=== PATIENT | female | born 1970 | race Two or more races ===

== ENCOUNTER 2019-07-28 13:31 | Emergency (ER) | payer OTHER ==
[2019-07-28 13:43] VITALS: BMI 21.3
[2019-07-28] MEDS ORDERED: SODIUM CHLORIDE 1,796 ML IV ONE (13:51)
[2019-07-28 14:31] LABS: BASO % 0.3 % (0-2.0); EOS % 0.8 % (0-4.5); HEMATOCRIT 30.7 % (32.4-45.2); HEMOGLOBIN 9.1 GM/dL (10.7-15.3); LYMPH % 10.1 % (8-40); MCHC 29.7 g/dl (32.0-36.0); MEAN CELL VOLUME 59.5 fl (80-96); MEAN PLT VOLUME 8.3 fl (7.5-11.1); MONO % 10.7 % (3.8-10.2); NEUT % 78.1 % (42.8-82.8); PLATELET COUNT 515 K/MM3 (134-434); RBC 5.16 M/mm3 (3.60-5.2); RDW 23.5 % (11.6-15.6); WHITE BLOOD COUNT 13.8 K/mm3 (4.0-10.0)
[2019-07-28 14:45] LABS: INR 1.39 (0.83-1.09); PROTHROMBIN TIME (PATIENT) 16.4 SEC (9.7-13.0)
[2019-07-28 14:48] LABS: ACTIVATED PTT 34.5 SECONDS (25.2-36.5)
[2019-07-28 14:58] LABS: MCH 17.7 pg (25.7-33.7)
[2019-07-28 15:06] LABS: ALBUMIN 2.5 g/dl (3.4-5.0); ALK PHOS 116 U/L (45-117); ANION GAP 7 MMOL/L (8-16); BILIRUBIN,TOTAL 0.3 mg/dL (0.2-1); CALCIUM 8.5 mg/dL (8.5-10.1); CHLORIDE 105 mmol/L (98-107); CO2 26 mmol/L (21-32); CREATININE 0.5 mg/dL (0.55-1.3); GLUCOSE,RANDOM 105 mg/dL (74-106); POTASSIUM 3.5 mmol/L (3.5-5.1); SGOT/AST 32 U/L (15-37); SGPT/ALT 45 U/L (13-61); SODIUM 138 mmol/L (136-145); TOT PROT 6.5 g/dl (6.4-8.2)
--- NOTE | 2019-07-28 15:17 | PDOC ---
History of Present Illness - General Chief Complaint: Edema Stated Complaint: SENT BY PCP/ABN LABS History Source: Patient Exam Limitations: No Limitations - History of Present Illness Initial Comments: 07/28/19 15:08 49 yo female pmh anxiety and chronic anemia (scheduled for iron infusion next week) presents to the ED from Urgent care for low K and elevated WBC after persistent watery diarrhea. Pt states since 07/10/2019 she has had persistent, foul smelling watery diarrhea, 5 episodes a day without gross blood. Pt admits to recent endometrial procedure 2 weeks ago and warned about likely abdominal pain that will follow, pt does admit to bilateral lower quadrant abdominal pain. Pt has been followed by GI for IBS vs IBD, treated with 14 day course of Rifaxamin and has scheduled colonoscopy 08/2019. Pt had CT with IV and PO contrast 04/2019, states the report was normal, no concerning findings. Denies F /C/N/V, new abdominal pain, CP, SOB, back pain, changes in urinary habits, recent travel or sick contacts Past History - Past Medical History Allergies/Adverse Reactions: Allergies Allergy/AdvReac Type Severity Reaction Status Date / Time No Known Allergies Allergy Verified 07/28/19 13:39 Home Medications: Ambulatory Orders Amox-Tr/K Cl [Augmentin - 875Mg Tablet] 1 tab PO BID #20 tablet 07/28/19 LORazepam [Lorazepam] 0.5 mg PO TID PRN 07/28/19 Metronidazole 500 mg PO Q6H #40 tablet 07/28/19 Bacillus Coagulans [Probiotic] 1 each PO DAILY #14 capsule. 07/29/19 Anemia: Yes COPD: No - Psycho Social/Smoking Cessation Hx Smoking History: Never smoked Have you smoked in the past 12 months: No Information on smoking cessation initiated: No Hx Alcohol Use: No Drug/Substance Use Hx: No Review of Systems - Review of Systems Constitutional: No: Fever (however, rectal temp 100.6) HEENTM: No: Blurred Vision, Double Vision Respiratory: No: Shortness of Breath Cardiac (ROS): No: Chest Pain, Edema ABD/GI: Yes: Diarrhea. No: Abdominal Distended, Constipated, Nausea, Vomiting : No: Burning, Dysuria, Frequency, Flank Pain Musculoskeletal: No: Back Pain Integumentary: No: Bruising, Change in Color Neurological: No: Headache, Numbness, Paresthesia, Weakness *Physical Exam - Vital Signs Last Vital Signs Temp Pulse Resp BP Pulse Ox 98.1 F 125 H 18 127/80 98 07/28/19 13:40 07/28/19 13:40 07/28/19 13:40 07/28/19 13:40 07/28/19 13:40 - Physical Exam General Appearance: Yes: Nourished, Appropriately Dressed. No: Apparent Distress HEENT: positive: EOMI Neck: positive: Supple. negative: Carotid bruit Respiratory/Chest: positive: Lungs Clear, Normal Breath Sounds. negative: Respiratory Distress, Accessory Muscle Use, Rapid RR, Crackles, Rales, Rhonchi, Stridor, Wheezing Vascular Pulses: Dorsalis-Pedis (R): 4+, Doralis-Pedis (L): 4+ Gastrointestinal/Abdominal: positive: Flat, Soft, Tenderness (bilateral lower quadrant). negative: Pulsatile Mass, Distended, Guarding, Rebound Musculoskeletal: negative: CVA Tenderness Extremity: positive: Normal Inspection, Normal Range of Motion Integumentary: positive: Normal Color, Dry, Warm Neurologic: positive: Fully Oriented, Alert, Normal Mood/Affect, Normal Response ED Treatment Course - LABORATORY CBC & Chemistry Diagram: 07/28/19 14:00 07/28/19 14:00 - ADDITIONAL ORDERS Additional order review: Laboratory Results 07/28/19 07/28/19 07/28/19 14:00 14:00 14:00 PT with INR 16.40 H INR 1.39 H PTT (Actin FS) 34.5 Sodium 138 Potassium 3.5 Chloride 105 Carbon Dioxide 26 Anion Gap 7 L BUN 9.0 Creatinine 0.5 L Est GFR (CKD-EPI)AfAm 133.58 Est GFR (CKD-EPI)NonAf 115.25 Random Glucose 105 Calcium 8.5 Magnesium 2.0 Total Bilirubin 0.3 AST 32 ALT 45 Alkaline Phosphatase 116 Troponin I < 0.02 Total Protein 6.5 Albumin 2.5 L Serum , Qual Negative 07/28/19 14:00 RBC 5.16 MCV 59.5 L MCHC 29.7 L RDW 23.5 H MPV 8.3 Neutrophils % 78.1 Lymphocytes % 10.1 Monocytes % 10.7 H Eosinophils % 0.8 Basophils % 0.3 Medical Decision Making - Medical Decision Making 07/28/19 16:42 49 yo female pmh anxiety and chronic anemia (scheduled for iron infusion next week) presents to the ED from Urgent care for low K and elevated WBC after persistent watery diarrhea. Pt states since 07/10/2019 she has had persistent, foul smelling watery diarrhea, 5 episodes a day without gross blood. Pt admits to recent endometrial procedure 2 weeks ago and warned about likely abdominal pain that will follow, pt does admit to bilateral lower quadrant abdominal pain. Pt has been followed by GI for IBS vs IBD, treated with 14 day course of Rifaxamin and has scheduled colonoscopy 08/2019. Pt had CT with IV and PO contrast 04/2019, states the report was normal, no concerning findings. Denies F /C/N/V, new abdominal pain, CP, SOB, back pain, changes in urinary habits, recent travel or sick contacts vitals show elevated HR on arrival 125, after 1L during my exam, 115. Temp rectal 100.6, tylenol given Labs from Urgent Care show WBC of 18.7, HG of 9.5, K 2.9 In the ED labs show WBC 13, K of 3.5 Due to symptoms and labs, likely C diff however due to recent uterine procedure , can not r/o post op infection. CT ordered and emperic antibiotics ordered 07/28/19 21:04 CTAP shows moderate to marked thickening transvers- rectosig colon, infectious vs inflammatory pt to be admitted to Med surg for likely C diff Discharge - Discharge Information Problems reviewed: Yes Clinical Impression/Diagnosis: C. difficile colitis Condition: Stable Disposition: AGAINST MEDICAL ADVICE - Admission Yes - Additional Discharge Information Prescriptions: Amox-Tr/K Cl [Augmentin - 875Mg Tablet] 1 tab PO BID #20 tablet Metronidazole 500 mg PO Q6H #40 tablet - Follow up/Referral Referrals: Seferino Resendiz [Primary Care Provider] - - Patient Discharge Instructions Patient Printed Discharge Instructions: DI for Clostridium difficile Infection Additional Instructions: You were seen in the ED and it is medically advised for you to stay in the hospital to treat your infection however, you decided to leave against medical advice with the knowledge that your infection may worsen and possibly lead to . Medication was sent to your pharmacy for the infection, take the antibiotics as prescribed. You are welcome back to the hospital at any time for treatment and likely admission to the hospital. You should return to the closest ER immediately for new or concerning symptoms including but not limited to: inability to eat or drink, fevers, abdominal pain , weakness all your imaging and lab results were given to you. Thank you - Post Discharge Activity Work/Back to School Note: Back to Work
[2019-07-28] MEDS ORDERED: LACTATED RINGERS SOLUTION 1000 ML INFUS.BAG IV SCH (15:30)
[2019-07-28 15:47] LABS: VENOUS PC02 39.5 mmHg (38-52); VENOUS PO2 < 49 mmHg (28-48)
[2019-07-28] MEDS ORDERED: ACETAMINOPHEN 1000 MG/100 ML VIAL (NON FORMULARY) IVPB ONE (16:22)
[2019-07-28] MEDS ORDERED: ACETAMINOPHEN INJECTION 100 ML IVPB ONE (16:27)
[2019-07-28 17:54] LABS: ANISOCYTOSIS 2+; MACROCYTOSIS 1+; OVALOCYTE 1+; PLATELET ESTIMATE INCREASED; TEAR DROP CELLS 1+
[2019-07-28] MEDS ORDERED: VANCOMYCIN 1 GM in D5W (PRE-DOCKED) 1,000 MG/250 ML IVPB ONE (19:50)
[2019-07-28] MEDS ORDERED: PIPERACILLIN/TAZOB 4.5 GM 4.5 GM in DEXTROSE 5%-WATER 100 ML IVPB ONE (19:50)
--- NOTE | 2019-07-28 20:04 | PDOC ---
*Physical Exam - Vital Signs Last Vital Signs Temp Pulse Resp BP Pulse Ox 100.6 F H 102 H 16 124/71 98 07/28/19 15:54 07/28/19 16:44 07/28/19 16:44 07/28/19 16:44 07/28/19 16:44 ED Treatment Course - LABORATORY CBC & Chemistry Diagram: 07/28/19 14:00 07/28/19 14:00 - ADDITIONAL ORDERS Additional order review: Laboratory Results 07/28/19 07/28/19 07/28/19 18:15 15:05 14:00 PT with INR INR PTT (Actin FS) VBG pH 7.40 POC VBG pCO2 39.5 POC VBG pO2 < 49 H VBG HCO3 24.0 VBG O2 Sat (Lorelei) 23.8 L VBG Base Excess -0.1 Sodium Potassium Chloride Carbon Dioxide Anion Gap BUN Creatinine Est GFR (CKD-EPI)AfAm Est GFR (CKD-EPI)NonAf Random Glucose Lactic Acid 2.7 H* Calcium Magnesium Total Bilirubin AST ALT Alkaline Phosphatase Troponin I Total Protein Albumin Serum , Qual Negative Blood Type Antibody Screen 07/28/19 07/28/19 07/28/19 14:00 14:00 14:00 PT with INR INR PTT (Actin FS) VBG pH POC VBG pCO2 POC VBG pO2 VBG HCO3 VBG O2 Sat (Lorelei) VBG Base Excess Sodium 138 Potassium 3.5 Chloride 105 Carbon Dioxide 26 Anion Gap 7 L BUN 9.0 Creatinine 0.5 L Est GFR (CKD-EPI)AfAm 133.58 Est GFR (CKD-EPI)NonAf 115.25 Random Glucose 105 Lactic Acid 1.2 Calcium 8.5 Magnesium 2.0 Total Bilirubin 0.3 AST 32 ALT 45 Alkaline Phosphatase 116 Troponin I < 0.02 Total Protein 6.5 Albumin 2.5 L Serum , Qual Blood Type O POSITIVE Antibody Screen Negative 07/28/19 14:00 PT with INR 16.40 H INR 1.39 H PTT (Actin FS) 34.5 VBG pH POC VBG pCO2 POC VBG pO2 VBG HCO3 VBG O2 Sat (Lorelei) VBG Base Excess Sodium Potassium Chloride Carbon Dioxide Anion Gap BUN Creatinine Est GFR (CKD-EPI)AfAm Est GFR (CKD-EPI)NonAf Random Glucose Lactic Acid Calcium Magnesium Total Bilirubin AST ALT Alkaline Phosphatase Troponin I Total Protein Albumin Serum , Qual Blood Type Antibody Screen 07/28/19 14:00 RBC 5.16 MCV 59.5 L MCHC 29.7 L RDW 23.5 H MPV 8.3 Neutrophils % 78.1 Lymphocytes % 10.1 Monocytes % 10.7 H Eosinophils % 0.8 Basophils % 0.3 - RADIOLOGY Radiology Studies Ordered: Category Date Time Status ABDOMEN & PELVIS CT W/O CONTR [CT] Stat CT Scan 07/28/19 19:43 Taken - Medications Given in the ED: ED Medications Discontinued Medications Generic Name Dose Route Start Last Admin Trade Name Micha PRN Reason Stop Dose Admin Acetaminophen 1,000 mg 07/28/19 16:22 07/28/19 16:41 Ofirmev Injection - IVPB 07/28/19 16:23 1,000 mg ONCE ONE Administration Sodium Chloride 1,796 mls @ 898 mls/hr 07/28/19 13:51 07/28/19 14:06 Normal Saline - 30 ml/kg infuse over 2 hr (1796 ml) 07/28/19 15:50 898 mls/ hr IV Administration ONCE ONE Medical Decision Making - Medical Decision Making 07/28/19 20:00 I picked up patient from the day shift. She is awaiting CT abd/pelvis. She states that she has contrast allergy and as a result she will have a noncon study 07/28/19 20:14 Pt has no fever and no abd pain at this time. She is upset because she has a job interview tomorrow at [employer] [facility] [place] that she doesn't want to miss 07/28/19 20:15 Pt still tachycardic. 07/28/19 20:48 Patient Name: CLEO TOMAS THIS IS A PRELIMINARY REPORT FROM [facility] DATE OF SERVICE: 2019-07-28 19:41:38 IMAGES: [id number] EXAM: CT ABDOMEN AND PELVIS WITHOUT IV CONTRAST HISTORY: Please evaluate for ileus or obstruction. FINDINGS: Lower Chest: Within normal limits. Abdomen: Liver:: Within normal limits. Bile Ducts: Within normal limits. Gallbladder:: Within normal limits. Pancreas:: Within normal limits. Spleen:: Within normal limits. Adrenals: Within normal limits. Kidneys: There are a couple of tiny nonobstructing nephrolithiasis in the left kidney measuring up to 1-2 mm without evidence of hydronephrosis. Stomach:: Within normal limits. Bowel:: Moderate to marked thickening of the transverse, descending, and rectosigmoid colon compatible with inflammatory/infectious colitis including ulcerative colitis/ Crohn's disease. The possibility of C. difficile colitis cannot be excluded. No evidence of small bowel obstruction. Normal appendix is identifie. Small amount of fluid in the pelvic floor. Pelvis: Reproductive Organs: Enlarged fibroid uterus. Bladde: Within normal limits. Vessels: Aorta: Within the normal limits without aneurysm. . Retroperitoneum: Within normal limits. Bones: : No suspicious osseous lesions. IMPRESSION: 1. Moderate to marked thickening of the transverse, descending, and rectosigmoid colon compatible with inflammatory/infectious colitis including ulcerative colitis/ Crohn's disease. The possibility of C. difficile colitis cannot be excluded. No evidence of small bowel obstruction. Normal appendix is identifie. Small amount of fluid in the pelvic floor. Discharge - Discharge Information Problems reviewed: Yes Clinical Impression/Diagnosis: C. difficile colitis Condition: Stable Disposition: AGAINST MEDICAL ADVICE - Additional Discharge Information Prescriptions: Bacillus Coagulans [Probiotic] 1 each PO DAILY #14 capsule.dr - Follow up/Referral Referrals: Seferino Resendiz [Primary Care Provider] - - Patient Discharge Instructions Patient Printed Discharge Instructions: DI for Clostridium difficile Infection Additional Instructions: You were seen in the ED and it is medically advised for you to stay in the hospital to treat your infection however, you decided to leave against medical advice with the knowledge that your infection may worsen and possibly lead to . Medication was sent to your pharmacy for the infection, take the antibiotics as prescribed. You are welcome back to the hospital at any time for treatment and likely admission to the hospital. You should return to the closest ER immediately for new or concerning symptoms including but not limited to: inability to eat or drink, fevers, abdominal pain , weakness all your imaging and lab results were given to you. Thank you - Post Discharge Activity Work/Back to School Note: Back to Work
[2019-07-28] MEDS ORDERED: FOLIC ACID INJECTION - 1 MG, THIAMINE HCL 100 MG, MULTIVIT INJECTION ADULT 10 ML in SOD... IVPB ONE (20:16)
[2019-07-28] MEDS ORDERED: AMPICILLIN NA/SULBACTAM NA 3 GM in SODIUM CHLORIDE 100 ML IVPB ONE (20:18)
[2019-07-28] MEDS ORDERED: AMPICILLIN NA/SULBACTAM NA 1.5 GM VIAL ONE (20:33)
--- NOTE | 2019-07-28 21:25 | PN ---
Teaching Attending Note Name of Resident: Evan Llamas ATTENDING PHYSICIAN STATEMENT I saw and evaluated the patient. I reviewed the resident's note and discussed the case with the resident. I agree with the resident's findings and plan as documented. SUBJECTIVE: Patient is a 49 year old woman with a PMH of Anxiety and Anemia (scheduled for iron infusion next week) who presents to the ED from Urgent care for low K and elevated WBC after persistent watery diarrhea. Patient states that since 2019 she has had persistent, foul smelling watery diarrhea, 5 episodes a day without gross blood. Had endometrial procedure 2 weeks ago and warned about likely abdominal pain that will follow. Does admit to bilateral lower quadrant abdominal pain. Has been followed by GI for IBS vs IBD, treated with 14 day course of Rifaxamin and has scheduled colonoscopy 08/2019. Had CT with IV and PO contrast in 04/2019 and says the report was normal. Denies fever, chills, nausea, vomiting, chest pain, SOB, back pain, changes in urinary habits, recent travel or sick contacts. Denies alcohol, tobacco or illicit drug use. OBJECTIVE: Alert Vital Signs Period Temp Pulse Resp BP Sys/Henning Pulse Ox Last 24 Hr 98.1 F-100.6 F 102-125 16-18 124-127/71-80 98-98 HEENT: No Jaundice, eye redness or discharge, PERRLA, EOMI. Normocephalic, atraumatic. External ears are normal and hearing is grossly intact. No nasal discharge. Neck: Supple, nontender. No palpable adenopathy or thyromegaly. No JVD Chest: Good effort. Clear to auscultation and percussion. Heart: Regular. No S3, rub or murmur Abdomen: Not distended, soft, nontender and no HSM. No rebound or guarding. Normal bowel sounds. Ext: Peripheral pulses intact. No leg edema. Skin: Warm and dry. No petechiae, rash or ecchymosis. Neuro: Alert. Oriented x3. CN 2-12 grossly intact. Sensation grossly intact in all four extremities and DTR are symmetric. Psych: Appropriate mood and affect. Good insight. Current Medications Generic Name Dose Route Start Last Admin Trade Name Freq PRN Reason Stop Dose Admin Folic Acid 1 mg/ Thiamine HCl 1,000 mls @ 125 mls/hr 07/28/19 20:16 100 mg/ Multivitamins/Minerals IVPB 07/29/19 04:15 10 ml/ Sodium Chloride ONCE ONE Lactated Ringer's 1,000 ml 07/28/19 15:30 07/28/19 15:52 Lactated Ringers Solution IV 1,000 ml [id number] FRANCIS Administration Vancomycin HCl 250 mg 07/29/19 21:14 Vancomycin Oral Solution PO 07/29/19 21:15 NOW ONE Home Medications Medication Instructions Recorded LORazepam [Lorazepam] 0.5 mg PO TID PRN 07/28/19 Abnormal Lab Results 07/28/19 07/28/19 07/28/19 14:00 14:00 14:00 WBC 13.8 H Hgb 9.1 L Hct 30.7 L MCV 59.5 L MCH 17.7 L MCHC 29.7 L RDW 23.5 H Plt Count 515 H Absolute Neuts (auto) 10.8 H Monocytes % 10.7 H PT with INR 16.40 H INR 1.39 H POC VBG pO2 VBG O2 Sat (Lorelei) Anion Gap 7 L Creatinine 0.5 L Lactic Acid Albumin 2.5 L 07/28/19 07/28/19 15:05 18:15 WBC Hgb Hct MCV MCH MCHC RDW Plt Count Absolute Neuts (auto) Monocytes % PT with INR INR POC VBG pO2 < 49 H VBG O2 Sat (Lorelei) 23.8 L Anion Gap Creatinine Lactic Acid 2.7 H* Albumin ASSESSMENT AND PLAN: 1. C. Difficile Colitis - CT abdomen/pelvis without contrast showed "Moderate to marked thickening of the transverse, descending, and rectosigmoid colon compatible with inflammatory/ infectious colitis including ulcerative colitis/Crohn's disease. The possibility of C. difficile colitis cannot be excluded. No evidence of small bowel obstruction. Normal appendix is identified. Small amount of fluid in the pelvic floor". Sepsis workup being done. UA/CXR pending. Started on PO vancomycin for C. Difficile colitis pending stool analysis. Continue IV NS and trend lactic acid. Will continue comprehensive care for all of patients comorbid conditions. 2. Hypoalbuminemia - Possibly due to combined effects of malnutrition and inflammation associated with comorbid chronic conditions. Will ensure adequate dietary protein intake and also consult dietetics teacher. UA pending. 3. Low MCV Anemia - Consistent with blood loss/iron deficiency. Do basic anemia work up including serial stool guaiacs, reticulocyte count and iron studies. Would benefit from Procrit therapy once iron replete. 4. DVT prophylaxis - Lovenox 40 mg SQ q 24 hours. 5. Advance directives - Full code
[2019-07-28 23:11] VITALS: TEMP 98
[2019-07-29 01:14] VITALS: BP 126/73; PULSE 94
--- NOTE | 2019-07-29 10:02 | EKG ---
Test Reason : Blood Pressure : / mmHG Vent. Rate : 123 BPM Atrial Rate : 123 BPM P-R Int : 128 ms QRS Dur : 078 ms QT Int : 316 ms P-R-T Axes : 071 058 045 degrees QTc Int : 452 ms SINUS TACHYCARDIA POSSIBLE LEFT ATRIAL ENLARGEMENT NONSPECIFIC ST ABNORMALITY ABNORMAL ECG NO PREVIOUS ECGS AVAILABLE Confirmed by RONALDO POLO, SANDY ([id number]) on 07/29/2019 10:01:55 AM Referred By: Confirmed By:SANDY HIGGINS MD
[2019-07-29] MEDS ORDERED: VANCOMYCIN 250 MG/5 ML ORAL SOLUTION PO ONE (21:14)
--- NOTE | 2019-08-01 13:47 | PDOC ---
Documentation entered by Yury Wolfe SCRIBE, acting as scribe for Allyssa Nance MD. Allyssa Nance MD: This documentation has been prepared by the Aiden wheat Daniel, SCRIBE, under my direction and personally reviewed by me in its entirety. I confirm that the documentation accurately reflects all work, treatment, procedures, and medical decision making performed by me. Attending Attestation - Resident Resident Name: Kayden Morales - ED Attending Attestation I have performed the following: I have examined & evaluated the patient, The case was reviewed & discussed with the resident, I agree w/resident's findings & plan, Exceptions are as noted - HPI HPI: 07/28/19 16:50 The patient is a 49 year old female with a past medical history of anxiety and chronic anemia here today for evaluation of diarrhea and abnormal lab values. The patient reports that she has had watery foul smelling diarrhea everyday since 07/10/2019 and notes about 5 episodes per day. She states that she has had imaging and follows with a GI. Patient initially presented to an urgent care but was told to come here due to a low K and an elevated WBC. She also notes bilateral lower quadrant abdominal pain. She reports ablation for endometriosis 2 weeks ago and has had the lower abdominal pain since. Patient denies headache, lightheadedness. Denies fever, chills. Denies chest pain, shortness of breath. Denies nausea, vomiting. Allergies: NKA - Physicial Exam PE: 07/28/19 16:50 GENERAL: Awake, alert, and fully oriented, in no acute distress EYES: PERRLA, EOMI, sclera anicteric, conjunctiva clear ENT: Oropharynx clear without exudates. Dry MM NECK: Normal ROM, supple, no lymphadenopathy, JVD, or masses LUNGS: Breath sounds equal, clear to auscultation bilaterally. No wheezes, and no crackles HEART: Tachcardic but regular, normal S1 and S2, no murmurs, rubs or gallops ABDOMEN: Soft, mild RLQ and LLQ ttp, normoactive bowel sounds. No guarding, no rebound. No masses EXTREMITIES: Normal range of motion, no edema. No clubbing or cyanosis. No cords , erythema, or tenderness BACK: No midline spinal tenderness in cervical/thoracic/lumbar region NEUROLOGICAL: Normal speech, cranial nerves intact, equal strength and sensation b/l SKIN: Warm, Dry, normal turgor, no rashes or lesions noted. - Medical Decision Making 07/28/19 18:30 49yo F presents to the ED for diarrhea, lower abd pain, found to have hypokalemia at today and send to the ED for further evaluation. Here, potassium wnl, but pt has leukocytosis as well as lower abd pain She is also tachycardic with dry MM, likely dehydration 2/2 diarrhea HR is improved with 3L fluids (NSx2, LR x1) Recent abx 2mo ago, c.diff pending CTAP is pending to r/o acute intraabd pathology Initial lactic negative, however trended up after 3L IVF As such, will plan to admit pt for possible sepsis once CTAP is back Case signed out to Dr. Mon for further mgmt
== END 2019-07-29 00:05 | disposition left against medical advice (07) ==
LOC: JER 13:31 → SUPCPDRO 13:31 → JER 07-29 00:05
PROC: 3E0337Z Introduction of Electrolytic and Water Balance Substance into Peripheral Vein, Percutaneous Approach (ICD-10-PCS; principal; 2019-07-28)
PROC: 3E0337Z Introduction of Electrolytic and Water Balance Substance into Peripheral Vein, Percutaneous Approach (ICD-10-PCS; 2019-07-28)
PROC: 3E03329 Introduction of Other Anti-infective into Peripheral Vein, Percutaneous Approach (ICD-10-PCS; 2019-07-28)
PROC: 3E03329 Introduction of Other Anti-infective into Peripheral Vein, Percutaneous Approach (ICD-10-PCS; 2019-07-28)
PROC: 3E033GC Introduction of Other Therapeutic Substance into Peripheral Vein, Percutaneous Approach (ICD-10-PCS; 2019-07-28)
PROC: 3E033GC Introduction of Other Therapeutic Substance into Peripheral Vein, Percutaneous Approach (ICD-10-PCS; 2019-07-28)
PROC: 3E033NZ Introduction of Analgesics, Hypnotics, Sedatives into Peripheral Vein, Percutaneous Approach (ICD-10-PCS; 2019-07-28)
DX: A04.72 Enterocolitis due to Clostridium difficile, not specified as recurrent (principal); B96.89 Other specified bacterial agents as the cause of diseases classified elsewhere; D64.9 Anemia, unspecified; F41.9 Anxiety disorder, unspecified
CPT/HCPCS: 36415; 74176-TC; 80053; 82803; 83605; 83735; 84484; 84703; 85025; 85610; 85730; 86850; 86900; 86901; 87040; 87324; 87449; 93005; 93010; 99285-25; J0131; J7030

== ENCOUNTER 2019-08-02 09:04 | Inpatient (IN) | payer OTHER ==
--- NOTE | 2019-08-02 09:34 | PDOC ---
History of Present Illness - General Chief Complaint: Weakness Stated Complaint: CHEST PAIN/ DIZZINESS Time Seen by Provider: 08/02/19 09:30 History Source: Patient Exam Limitations: No Limitations - History of Present Illness Initial Comments: 08/02/19 09:33 HPI: 49 yo F PMH fibroids, anemia, presenting with chronic diarrhea for past year. Patient compiling of GI gassiness for 1 year, development of daily diarrhea, intermittently bloody, with preserved appetite. Was seen here for similar complaints - CT demonstrated a colitis, discharged on Flagyl / Amoxicillin. Patient reports the Flagyl gave her nausea and she self- discontinued after her Monday morning dose. She reports that the antibiotics did remove the foul smell from her diarrhea. C. Dif from 07/28 visit has resulted negative. She has a GI provider (Dr. Shea Leon) and is scheduled for a colonoscopy on 09/05 and a GI follow up appointment on 08/06. Tylenol helps with her general aches. She reports having an appetite, ate 1/2 a tuna sandwich , a gatorade, and her liquid iron supplement this morning. She says she is fearful because she has lost 10lbs over the last week in light of worsening appetite and feels her diarrhea is getting ahead of her. Of note, she reports baseline tachycardia, stating that her family all has fast heart rates. Denies any other cardiovascular problems in self or family. All: - Contrast (Jittery) - Metronidazole (nausea) Meds: Per chart PMH: fibroids, anemia PSH: Denies Past History - Past Medical History Allergies/Adverse Reactions: Allergies Allergy/AdvReac Type Severity Reaction Status Date / Time No Known Allergies Allergy Verified 08/02/19 10:22 Home Medications: Ambulatory Orders LORazepam [Lorazepam] 0.5 mg PO TID PRN 07/28/19 Bacillus Coagulans [Probiotic] 1 each PO DAILY #14 capsule. 07/29/19 Anemia: Yes COPD: No - Psycho Social/Smoking Cessation Hx Smoking History: Never smoked Have you smoked in the past 12 months: No Hx Alcohol Use: No Drug/Substance Use Hx: No Review of Systems - Review of Systems Able to Perform ROS?: Yes Is the patient limited Palestinian proficient: Yes Constitutional: Yes: Unintentional Wgt. Loss. No: Chills, Fever, Weakness HEENTM: No: Nose Pain, Nose Congestion, Throat Pain, Mouth Pain Respiratory: No: Cough, Shortness of Breath, Wheezing Cardiac (ROS): No: Chest Pain ABD/GI: Yes: Diarrhea, Nausea. No: Constipated, Poor Appetite, Poor Fluid Intake, Vomiting : No: Burning, Dysuria, Frequency Musculoskeletal: No: Muscle Pain, Muscle Weakness Integumentary: No: Bruising, Pallor, Rash Neurological: No: Headache, Numbness, Tingling, Weakness Psychiatric: Yes: Anxiety, Change in Appetite Endocrine: No: Increased Thirst, Increased Urine Hematologic/Lymphatic: Yes: Anemia. No: Blood Clots, Easy Bleeding All Other Systems: Reviewed and Negative *Physical Exam - Physical Exam 08/02/19 11:03 Vitals reviewed, afebrile, tachycardic to 120s-130s GEN: Well appearing, appears stated age, NAD, comfortable. AAOx3. HEENT: NCAT, EOMI, PERRL. Sclera anicteric, noninjected. No facial asymmetry. Moist mucous membranes. Normal voice. Trachea midline. CV: Tachy, NSR, S1/S2, no murmurs / rubs / gallops appreciated. LUNG: CTAB, normal work of breathing. No wheezes, rales, rhonchi. No cough. Speaking full sentences. GI: Soft, NTND, no guarding, no rebound. No masses. EXTREMITIES: 2+ distal pulses. No LE edema. No obvious deformities of all extremities. SKIN: Warm, dry, no rashes appreciated, non-jaundiced. PSYCH: Normal mood and affect. Cooperative and appropriate. NEURO: CN grossly intact. Moving all extremities well. Normal strength and sensation grossly. ED Treatment Course - LABORATORY CBC & Chemistry Diagram: 08/02/19 10:00 08/02/19 10:00 Medical Decision Making - Medical Decision Making 08/02/19 09:33 49 yo F PMH fibroids, anemia, anxiety, presenting with chronic diarrhea for past year. History notable for close GI follow up, worsened diarrhea for past month, recent presentation with partial antibiotic regimen due to noncompliance. Concerning for colitis, possibly UC vs infectious. Increasing leukocytosis, no fever, worsening appetite, patient noncompliant with PO medications. - CBC, CMP, T&S, Coags - EKG - 1L IVF NS 08/02/19 11:07 - 18.4 WBC - EKbpm, sinus, normal axis, normal intervals, QTc 449, no ischemic changes, possible ?LA enlargement, otherwise normal EKG 08/02/19 12:54 - Repeat lactic acid ordered, initial 3.3, s/p 2L IVF - ABX running Admit: Colitis, IV ABX Discharge - Discharge Information Problems reviewed: Yes Clinical Impression/Diagnosis: Colitis Condition: Guarded - Follow up/Referral - Patient Discharge Instructions - Post Discharge Activity
[2019-08-02] MEDS ORDERED: SODIUM CHLORIDE 0.9% 500 ML INFUS.BAG IV ONE ×3 (09:56→12:38)
[2019-08-02 10:28] LABS: BASO % 0.2 % (0-2.0); EOS % 1.3 % (0-4.5); HEMOGLOBIN 9.5 GM/dL (10.7-15.3); LYMPH % 8.4 % (8-40); MCHC 29.8 g/dl (32.0-36.0); MEAN CELL VOLUME 60.1 fl (80-96); MEAN PLT VOLUME 8.4 fl (7.5-11.1); MONO % 12.2 % (3.8-10.2); NEUT % 77.9 % (42.8-82.8); PLATELET COUNT 686 K/MM3 (134-434); RBC 5.32 M/mm3 (3.60-5.2); RDW 22.3 % (11.6-15.6); WHITE BLOOD COUNT 18.4 K/mm3 (4.0-10.0)
[2019-08-02 10:40] LABS: MCH 17.9 pg (25.7-33.7)
[2019-08-02 10:41] LABS: INR 1.54 (0.83-1.09); PROTHROMBIN TIME (PATIENT) 18.3 SEC (9.7-13.0)
[2019-08-02 10:44] LABS: ACTIVATED PTT 33.4 SECONDS (25.2-36.5)
[2019-08-02 11:01] LABS: ALBUMIN 2.1 g/dl (3.4-5.0); BILIRUBIN,TOTAL 0.1 mg/dL (0.2-1); BLOOD UREA NITROGEN 10.2 mg/dL (7-18); CREATININE 0.6 mg/dL (0.55-1.3); POTASSIUM 3.2 mmol/L (3.5-5.1); TOT PROT 5.6 g/dl (6.4-8.2)
--- NOTE | 2019-08-02 11:01 | PDOC ---
Documentation entered by Gina Lee SCRIBE, acting as scribe for Kelvin Boyer MD. Kelvin Boyer MD: This documentation has been prepared by the Jesus wheat Adrianna, SCRIBE, under my direction and personally reviewed by me in its entirety. I confirm that the documentation accurately reflects all work, treatment, procedures, and medical decision making performed by me. Attending Attestation - Resident Resident Name: CarlosCarlos - ED Attending Attestation I have performed the following: I have examined & evaluated the patient, The case was reviewed & discussed with the resident, I agree w/resident's findings & plan, Exceptions are as noted - HPI HPI: The patient is a 49 year old female, with a significant PMH of fibroids, anxiety and chronic anemia, who presents to the ED for evaluation of chronic diarrhea for the past year. Patient complains of daily diarrhea (intermittently has blood), decrease in appetite, unintentional weight loss, and gassiness. She was seen in the ED for this complaint, CTAP demonstrated colitis, and she was discharged on flagyl and amoxicillin (she discontinued flagyl as it made her nauseous, and amoxicillin gave her stool a foul smell). Her C.diff was negative at the time. Patient is scheduled for a colonoscopy next month. Unrelated, patient complains of baseline tachycardia, which many of her family members have as well. Allergies: Contrast, metronidazole Surgical History: None reported Social History: Denies EtOH, tobacco, or illicit drug use PCP: Dr. Resendiz GI: Dr. Shea Ryan - Physicial Exam PE: Vitals: Triage vital signs reviewed General Appearance: No acute distress, well nourished, well developed Cardiac: Regular rate and rhythm, no murmurs, no rubs, no gallops Lungs: Clear to auscultation bilateral, good air movement bilaterally Abdomen: +Mild diffuse abdominal tenderness to palpation. Soft, nondistended, normal bowel sounds. No rebound or guarding. Extremities: Full range of motion to all extremities, no cyanosis, clubbing, or edema Skin: Warm and dry, no rashes or lesions, no rash, no petechiae Psych: Normal mood, normal affect - Medical Decision Making 49 year old female with history of fibroids, anxiety and chronic anemia, presents with diarrhea, loss of appetite, unintentional weight loss, and gassiness. Plan: labs, ECG, reassess Progressively worsening nausea discontinued her antibiotics on Monday now with worsening electrolyte abnormalities increasing WBC, and persistant tachycardia Concerning for worsening colitis infection we will discussed with patient's GI and admit for IV antibiotics and further management.
[2019-08-02] MEDS ORDERED: ACETAMINOPHEN 1000 MG/100 ML VIAL (NON FORMULARY) IVPB ONE (11:30)
[2019-08-02] MEDS ORDERED: POTASSIUM CHLORIDE 20 MEQ PREMIX IVPB 100 ML IVPB ONE (11:39)
[2019-08-02] MEDS ORDERED: SODIUM CHLORIDE 1,633 ML IV ONE (11:51)
[2019-08-02] MEDS ORDERED: POTASSIUM CHLORIDE TABS 20 MEQ TABLET.ER (FP) PO ONE ×2 (11:52→12:30)
[2019-08-02 12:25] LABS: PH,URINE 7.5 (5.0-8.0); URINE APPEARANCE CLOUDY; URINE BILIRUBIN NEGATIVE (NEGATIVE); URINE COLOR YELLOW; URINE GLUCOSE (UA) NEGATIVE (NEGATIVE); URINE KETONE NEGATIVE (NEGATIVE); URINE LEUK ESTERASE NEGATIVE (NEGATIVE); URINE NITRITE NEGATIVE (NEGATIVE); URINE PROTEIN NEGATIVE (NEGATIVE); URINE UROBILINOGEN 0.2 mg/dL (0.2-1.0)
--- NOTE | 2019-08-02 13:48 | EKG ---
Test Reason : Blood Pressure : / mmHG Vent. Rate : 133 BPM Atrial Rate : 133 BPM P-R Int : 134 ms QRS Dur : 078 ms QT Int : 302 ms P-R-T Axes : 066 057 042 degrees QTc Int : 449 ms SINUS TACHYCARDIA POSSIBLE LEFT ATRIAL ENLARGEMENT NONSPECIFIC ST ABNORMALITY ABNORMAL ECG WHEN COMPARED WITH ECG OF 28-JUL-2019 13:41, NO SIGNIFICANT CHANGE WAS FOUND Confirmed by MICHAEL CEVALLOS MD ([id number]) on 08/02/2019 1:48:29 PM Referred By: Confirmed By:MICHAEL CEVALLOS MD
--- NOTE | 2019-08-02 15:24 | HP ---
CHIEF COMPLAINT: abdominal pain, persistent diarrhea, weakness PCP: HISTORY OF PRESENT ILLNESS: Patient is a 49 year old female with a significant past medical history of anxiety, fibroids and anemia. She presents to the ED with chronic diarrhea for approximately 1 year. She has been having diarrhea that she reports is intermittently bloody. She reports a good appetite despite the loose stools. Patient mostly recently here in the ED on for abdominal pain. An abdomen/ct pelvis showed colitis. She was discharged home with Flagyl and Amoxicilin. She reports that the Flagyl made her stomach hurt and gave her nausea so she stopped taking the medication. She has a GI specialist who has scheduled her for a colonospy in August ad she has a GI follow up appointment next week. She reports a weight loss of 10lbs in the last week despite eating. She denies any nausea or vomiting currently. No chest pain. imaging: abdominal ultrasound 08/02/2019:abdominal u/s gall bladder polyp, no evidence of acute rosa, borderline hepaspenagomaly with diffuse fatty inf of liver. abd pelvis c/t w/o contrast 07/28/2019: (1) severe thickening of the transverse descending and retrosigmoid colon with extensive surrounding inflammation and reactive adenopathy. The differential diagnosis includes inflammatory bowel disease such as ulcerative colitis, infectious colitis as c diff and less likely neoplastic disease. (2) Significantly enlarged uterus with a dominnant mass statistically likely fibroid, intramural with a large submucosa/ eddometrial component. 2.4 x 1.6 cm left ovarian follicular cyst. (3) small hypodensity in the medial segment of the left hepatic lobe. ER course was notable for: (1) wbc 18.4 (2) hmg/hct 9.5/32 (3) abdominal u/s gall bladder polyp, no evidence of acute rosa, borderline hepaspenagomaly with diffuse fatty inf of liver. see abd/ct imaging done on Recent Travel: none PAST MEDICAL/SURGICAL HISTORY: anxiety, fibroids and anemia Social History: Smoking: none Alcohol:none Drugs: none Allergies No Known Allergies Allergy (Verified 08/02/19 10:22) HOME MEDICATIONS: Home Medications Medication Instructions Recorded LORazepam [Lorazepam] 0.5 mg PO TID PRN 07/28/19 Bacillus Coagulans [Probiotic] 1 each PO DAILY #14 capsule. 07/29/19 PHYSICAL EXAMINATION Vital Signs - 24 hr 08/02/19 08/02/19 08/02/19 09:31 10:48 11:41 Temperature 98.0 F 97.8 F Pulse Rate 129 H Pulse Rate [ 113 H Apical] Respiratory 18 Rate Blood Pressure 127/100 Blood Pressure [Right Arm] O2 Sat by Pulse 100 Oximetry (%) 08/02/19 12:07 Temperature 98.4 F Pulse Rate Pulse Rate [ 134 H Apical] Respiratory 20 Rate Blood Pressure Blood Pressure 126/91 [Right Arm] O2 Sat by Pulse 100 Oximetry (%) GENERAL: Awake, alert, and fully oriented, in no acute distress. HEAD: Normal with no signs of trauma. EYES: Pupils equal, round and reactive to light, extraocular movements intact, sclera anicteric, conjunctiva clear. No lid lag. EARS, NOSE, THROAT: Ears normal, nares patent, oropharynx clear without exudates. Moist mucous membranes. NECK: Normal range of motion, supple without lymphadenopathy, JVD, or masses. LUNGS: Breath sounds equal, clear to auscultation bilaterally. No wheezes, and no crackles. No accessory muscle use. HEART: Regular rate and rhythm, normal S1 and S2 without murmur, rub or gallop. ABDOMEN: Soft, nontender, not distended, normoactive bowel sounds, no guarding + abdominal tenderness on lower quadrants MUSCULOSKELETAL: Normal range of motion at all joints. No bony deformities or tenderness. No CVA tenderness. UPPER EXTREMITIES: 2+ pulses, warm, well-perfused. No cyanosis. No clubbing. No peripheral edema. LOWER EXTREMITIES: 2+ pulses, warm, well-perfused. No calf tenderness. No peripheral edema. NEUROLOGICAL: Cranial nerves II-XII intact. Normal speech. Normal gait. PSYCHIATRIC: Cooperative. Good eye contact. Appropriate mood and affect. SKIN: Warm, dry, normal turgor, no rashes or lesions noted, normal capillary refill. Laboratory Results - last 24 hr 08/02/19 08/02/19 08/02/19 10:00 10:00 10:00 WBC 18.4 H RBC 5.32 H Hgb 9.5 L Hct 32.0 L MCV 60.1 L MCH 17.9 L MCHC 29.8 L RDW 22.3 H Plt Count 686 H D MPV 8.4 Absolute Neuts (auto) 14.3 H Neutrophils % 77.9 Lymphocytes % 8.4 Monocytes % 12.2 H Eosinophils % 1.3 Basophils % 0.2 Nucleated RBC % 0 PT with INR 18.30 H INR 1.54 H PTT (Actin FS) 33.4 Sodium 137 Potassium 3.2 L Chloride 102 Carbon Dioxide 26 Anion Gap 10 BUN 10.2 Creatinine 0.6 Est GFR (CKD-EPI)AfAm 125.80 Est GFR (CKD-EPI)NonAf 108.54 Random Glucose 100 Lactic Acid Calcium 8.0 L Total Bilirubin 0.1 L AST 64 H ALT 103 H Alkaline Phosphatase 103 Total Protein 5.6 L Albumin 2.1 L Urine Color Urine Appearance Urine pH Ur Specific [place] Urine Protein Urine Glucose (UA) Urine Ketones Urine Blood Urine Nitrite Urine Bilirubin Urine Urobilinogen Ur Leukocyte Esterase Blood Type Antibody Screen 08/02/19 08/02/19 08/02/19 10:00 12:00 12:03 WBC RBC Hgb Hct MCV MCH MCHC RDW Plt Count MPV Absolute Neuts (auto) Neutrophils % Lymphocytes % Monocytes % Eosinophils % Basophils % Nucleated RBC % PT with INR INR PTT (Actin FS) Sodium Potassium Chloride Carbon Dioxide Anion Gap BUN Creatinine Est GFR (CKD-EPI)AfAm Est GFR (CKD-EPI)NonAf Random Glucose Lactic Acid 3.3 H* Calcium Total Bilirubin AST ALT Alkaline Phosphatase Total Protein Albumin Urine Color Yellow Urine Appearance Cloudy Urine pH 7.5 Ur Specific [place] 1.012 Urine Protein Negative Urine Glucose (UA) Negative Urine Ketones Negative Urine Blood Negative Urine Nitrite Negative Urine Bilirubin Negative Urine Urobilinogen 0.2 Ur Leukocyte Esterase Negative Blood Type Cancelled Antibody Screen Cancelled 08/02/19 13:00 WBC RBC Hgb Hct MCV MCH MCHC RDW Plt Count MPV Absolute Neuts (auto) Neutrophils % Lymphocytes % Monocytes % Eosinophils % Basophils % Nucleated RBC % PT with INR INR PTT (Actin FS) Sodium Potassium Chloride Carbon Dioxide Anion Gap BUN Creatinine Est GFR (CKD-EPI)AfAm Est GFR (CKD-EPI)NonAf Random Glucose Lactic Acid 1.1 Calcium Total Bilirubin AST ALT Alkaline Phosphatase Total Protein Albumin Urine Color Urine Appearance Urine pH Ur Specific [place] Urine Protein Urine Glucose (UA) Urine Ketones Urine Blood Urine Nitrite Urine Bilirubin Urine Urobilinogen Ur Leukocyte Esterase Blood Type Antibody Screen ASSESSMENT/PLAN: Family Medical History Family History: Denies Family Hx Cardiac Disorders: Father Family Hx Congestive Heart Failure: Father Problem List - Problem (1) Abdominal pain Assessment/Plan: abd ct shows severe thickening of the transverse descending and retrosigmoid colon with extensive surrounding inflammation and reactive adenopathy. Possible inflammatory bowel disease such as ulcerative colitis, infectious colitis as c diff and less likely neoplastic disease She had a recent abc/ct which showed possible ulcerative colitis. started on flagyl and amoxicillin as an outpatient but did not complete full course. Gi following start on IVF hydration send for c diff, stool for ova/parasites, stool culture Code(s): R10.9 - UNSPECIFIED ABDOMINAL PAIN (2) Colitis Assessment/Plan: recently treated with PO flagyl and amoxicillin but could not tolerate PO antibiotics. Given Levaquin IV and Flagyl IV in the ED Code(s): K52.9 - NONINFECTIVE GASTROENTERITIS AND COLITIS, UNSPECIFIED (3) C. difficile colitis Assessment/Plan: stool for c diff pending started on PO vanco pending results of c diff Code(s): A04.72 - ENTEROCOLITIS D/T CLOSTRIDIUM DIFFICILE, NOT SPCF RECUR (4) Leukocytosis Assessment/Plan: WBC 18.4 start on Flagyl and Levaquin ID consulted for further recommendations blood and urine cultures pending lactic acid elevated and pending repeat. Code(s): D72.829 - ELEVATED WHITE BLOOD CELL COUNT, UNSPECIFIED (5) Fibroids Assessment/Plan: will need outpatient follow up Code(s): D21.9 - BENIGN NEOPLASM OF CONNECTIVE AND OTHER SOFT TISSUE, UNSP (6) Prophylactic measure Assessment/Plan: fen NS @ 125 monitor electrolytes low fiber diet full code Code(s): Z29.9 - ENCOUNTER FOR PROPHYLACTIC MEASURES, UNSPECIFIED Visit type - Emergency Visit Emergency Visit: Yes ED Registration Date: 08/02/19 Care time: The patient presented to the Emergency Department on the above date and was hospitalized for further evaluation of their emergent condition. - New Patient This patient is new to me today: Yes Date on this admission: 08/03/19 - Critical Care Critical Care patient: No
--- NOTE | 2019-08-02 16:16 | CON.GI ---
Consult Consult Specialty:: GI Referred by:: [facility] Reason for Consultation:: Diarrhea - History of Present Illness Chief Complaint: Diarrhea History of Present Illness: 49 F admitted for evaluation of persistent diarrhea. States that she follows with ginseng farmer Dr. Shea Leon for about a year now due to "gassiness, intermittent constipation and intermittent diarrhea". She has never had an EGD or colonoscopy. She has been trialed on Cipro anf had two courses of rifaximin, presumably for treatment of possible SIBO. After this past new years, she began experiencing frequent watery bowel movements with intermittent blood tinge as well. She was seen twice in the ER over the past weekend for this complaint, had a CT scan that revealed thickening of the transverse,descending,sigmoid colon as well as enlarged uterus. She was given PO abx, she states that they wanted to admite her but she opted not to. Symptoms persisted along with blood in stool and she came back. She is scheduled to have a colonoscopy in Aug with Dr. Leon. There is no family history of colorectal cancer, IBD. She has 6+ watery BMs per day with blood streaks. She denies fevers/chills. She believes that since earlier this month she has lost 10 pounds. She denies nausea/vomiting. She has C. Diff testing performed when in the ER 07/28 that was negative. She has had a history of anemia "forever", takes liquid iron intermittently and described menorrhagia up until 04/27. - History Source History Provided By: Patient, Family Member, Medical Record Limitations to Obtaining History: No Limitations - Past Medical History Reproductive: Yes: Fibroids Heme/Onc: Yes: Anemia - Past Surgical History Additional Surgical History: - Alcohol/Substance Use Hx Alcohol Use: No History of Substance Use: reports: None - Smoking History Smoking history: Former smoker Have you smoked in the past 12 months: No - Social History Usual Living Arrangement: With Spouse ADL: Independent Place of : [facility] History of Recent Travel: No Home Medications - Allergies Allergies/Adverse Reactions: Allergies Allergy/AdvReac Type Severity Reaction Status Date / Time No Known Allergies Allergy Verified 08/02/19 10:22 - Home Medications Home Medications: Ambulatory Orders LORazepam [Lorazepam] 0.5 mg PO TID PRN 07/28/19 Bacillus Coagulans [Probiotic] 1 each PO DAILY #14 capsule. 07/29/19 Family Medical History Other Family History: Mother: Alive, healthy. Father: : 74: CHF. Brother: Healthy. No children. No family history of colorectal cancer or other GI malignancy Review of Systems - Review of Systems Constitutional: reports: Unintentional Wgt. Loss. denies: Chills, Fever, Loss of Appetite Cardiovascular: denies: Chest Pain Respiratory: denies: Cough, SOB Gastrointestinal: reports: Abdominal Pain, Diarrhea, Rectal Bleeding. denies: Nausea, Vomiting Physical Exam-GI Vital Signs: Vital Signs: Performed by Myself at 4PM: Temperature 98.4 F 08/02/19 12:07 Pulse Rate 118 H 08/02/19 12:07 Respiratory Rate 16 08/02/19 12:07 Blood Pressure 113/77 08/02/19 12:07 O2 Sat by Pulse Oximetry (%) 100 08/02/19 12:07 Constitutional: Yes: Calm Eyes: No: Sclera Icterus Cardiovascular: Yes: Tachycardia. No: Murmur Respiratory: Yes: CTA Bilaterally Gastrointestinal Inspection: No: Distention, Scars ...Auscultate: Yes: Normoactive Bowel Sounds ...Palpate: Yes: Soft, Tenderness (Mild TTP suprapubic area and left abdomen) ...Percussion: No: Tympanitic Edema: No Neurological: Yes: Alert Labs: CBC, BMP 08/02/19 10:00 08/02/19 10:00 INR, PTT INR 1.54 (0.83-1.09) H 08/02/19 10:00 Hepatic Panel Total Bilirubin 0.1 mg/dL (0.2-1) L 08/02/19 10:00 AST 64 U/L (15-37) H 08/02/19 10:00 ALT 103 U/L (13-61) H 08/02/19 10:00 Alkaline Phosphatase 103 U/L (45-117) 08/02/19 10:00 Albumin 2.1 g/dl (3.4-5.0) L 08/02/19 10:00 Problem List - Problems (1) Colitis Assessment/Plan: Involving at least up to the transverse colon Given persistence of symptoms, blood streaking, weight loss and anemia (no real medical assistant ob gyn losses from 04/27) suspect that Ms. Fall will likely have ulcertaive colitis. Given the frequency of BM's, associated blood streaking, suspect at least mod-severe disease. C. Diff negative 07/28 Advise: Completion of infectious work-up: Stool for culture, O&P, repeat C. Diff Needs aggressive IV hydration If infectious work-up negative, will need flex sig for further assessment and help ascertain extent of disease and corticosteroid therapy PO vanco until repeat C. Diff negative IV Abx for now Started Asacol HD Code(s): K52.9 - NONINFECTIVE GASTROENTERITIS AND COLITIS, UNSPECIFIED
[2019-08-02] MEDS: SODIUM CHLORIDE 1,000 ML IV SCH (20:14)
[2019-08-02] MEDS: VANCOMYCIN 250 MG/5 ML ORAL SOLUTION PO SCH ×2 (23:20)
[2019-08-03] MEDS: SODIUM CHLORIDE 1,000 ML IV SCH ×2 (06:37→18:49)
[2019-08-03] MEDS: VANCOMYCIN 250 MG/5 ML ORAL SOLUTION PO SCH ×2 (06:38→13:21)
[2019-08-03] MEDS ORDERED: DEXTROSE 5%-WATER - 50 ML IVPB ONE (08:57)
[2019-08-03] MEDS ORDERED: cefTRIAXone SODIUM 1 GM VIAL ONE (08:57)
[2019-08-03 09:51] LABS: BASO % 0.2 % (0-2.0); EOS % 1.7 % (0-4.5); HEMATOCRIT 26.6 % (32.4-45.2); HEMOGLOBIN 7.8 GM/dL (10.7-15.3); LYMPH % 8.9 % (8-40); MCHC 29.4 g/dl (32.0-36.0); MEAN CELL VOLUME 60.4 fl (80-96); MEAN PLT VOLUME 8.3 fl (7.5-11.1); MONO % 12.4 % (3.8-10.2); NEUT % 76.8 % (42.8-82.8); PLATELET COUNT 598 K/MM3 (134-434); RDW 22.6 % (11.6-15.6); WHITE BLOOD COUNT 17.8 K/mm3 (4.0-10.0)
[2019-08-03 09:55] LABS: INR 1.54 (0.83-1.09); PROTHROMBIN TIME (PATIENT) 18.2 SEC (9.7-13.0)
[2019-08-03 10:00] LABS: MCH 17.8 pg (25.7-33.7)
[2019-08-03] MEDS ORDERED: CEFTRIAXONE 1 GM in DEXTROSE 5%-WATER - 50 ML IVPB SCH (10:00)
[2019-08-03 10:10] LABS: CALCIUM 7.4 mg/dL (8.5-10.1); CREATININE 0.3 mg/dL (0.55-1.3); MAGNESIUM 1.9 mg/dL (1.8-2.4); POTASSIUM 3.3 mmol/L (3.5-5.1)
[2019-08-03 10:16] LABS: BLOOD UREA NITROGEN 2.6 mg/dL (7-18)
[2019-08-03 10:40] LABS: ALBUMIN 1.7 g/dl (3.4-5.0); BILIRUBIN,TOTAL 0.2 mg/dL (0.2-1); CALCIUM 7.7 mg/dL (8.5-10.1); CREATININE 0.3 mg/dL (0.55-1.3); POTASSIUM 3.5 mmol/L (3.5-5.1); TOT PROT 4.9 g/dl (6.4-8.2)
[2019-08-03 10:52] LABS: BLOOD UREA NITROGEN 2.7 mg/dL (7-18)
[2019-08-03] MEDS ORDERED: PT OWN MED DRAWER 7, Y5N ONE (11:20)
[2019-08-03] MEDS: MESALAMINE 800 MG TABLET.DR PO SCH (11:21)
--- NOTE | 2019-08-03 11:57 | CON.ID ---
Consult Consult Specialty:: infectious diseases Referred by:: Devorah Reason for Consultation:: leukocytosis,dirrhoea,bleeding per rectum - History of Present Illness Chief Complaint: abd pain ,cramping dirrhoea History of Present Illness: 49 year old female with a significant past medical history of anxiety, fibroids and anemia. admitted with chronic diarrhea for approximately 1 year. She has been having diarrhea that she reports is intermittently bloody. She reports a good appetite despite the loose stools. Patient mostly recently here in the ED on for abdominal pain. An abdomen/ct pelvis showed colitis. She was discharged home with Flagyl and Amoxicilin. She reports that the Flagyl made her stomach hurt and gave her nausea so she stopped taking the medication. She has a GI specialist who has scheduled her for a colonospy in August she has a GI follow up appointment next week. She reports a weight loss of 10lbs in the last week despite eating. She denies any nausea or vomiting currently. No chest pain. patient also mentions that she has been cramping and also having blood sometimes also pain sometimes is more severe and goes to the back currently still has abd pain work up shows leukocytosis gi on board - History Source History Provided By: Patient Limitations to Obtaining History: No Limitations - Past Medical History ...LMP Comment: 04/2019 ...: (order in for test) - Past Surgical History Additional Surgical History: - Alcohol/Substance Use Hx Alcohol Use: No History of Substance Use: reports: None - Smoking History Smoking history: Never smoked Have you smoked in the past 12 months: No - Social History Usual Living Arrangement: With Spouse ADL: Independent History of Recent Travel: No Home Medications - Allergies Allergies/Adverse Reactions: Allergies Allergy/AdvReac Type Severity Reaction Status Date / Time Iodinated Contrast Media AdvReac Intermediate Verified 08/03/19 08:19 - Home Medications Home Medications: Ambulatory Orders LORazepam [Lorazepam] 0.5 mg PO TID PRN 07/28/19 Bacillus Coagulans [Probiotic] 1 each PO DAILY #14 capsule. 07/29/19 Review of Systems - Review of Systems Constitutional: reports: No Symptoms Eyes: reports: No Symptoms HENT: reports: No Symptoms Neck: reports: No Symptoms Cardiovascular: reports: No Symptoms Respiratory: reports: No Symptoms Gastrointestinal: reports: Abdominal Pain, Diarrhea Genitourinary: reports: No Symptoms Musculoskeletal: reports: No Symptoms Integumentary: reports: No Symptoms Neurological: reports: No Symptoms Endocrine: reports: No Symptoms Hematology/Lymphatic: reports: No Symptoms Psychiatric: reports: No Symptoms Physical Exam Vital Signs: Vital Signs Temperature 98.8 F 08/03/19 06:00 Pulse Rate 120 H 08/03/19 10:00 Respiratory Rate 18 08/03/19 10:00 Blood Pressure 130/76 08/03/19 10:00 O2 Sat by Pulse Oximetry (%) 97 08/03/19 09:00 Constitutional: Yes: Calm, Mild Distress Eyes: Yes: Conjunctiva Clear HENT: Yes: Atraumatic Neck: Yes: Supple, Trachea Midline Cardiovascular: Yes: Regular Rate and Rhythm Respiratory: Yes: Regular, CTA Bilaterally Gastrointestinal: Yes: Normal Bowel Sounds, Soft, Tenderness Musculoskeletal: Yes: WNL Extremities: Yes: WNL Neurological: Yes: Alert, Oriented Psychiatric: Yes: Alert, Oriented Labs: CBC, BMP 08/03/19 08:05 08/03/19 08:05 Imaging - Results Cat Scan: Report Reviewed, Image Reviewed Ultrasound: Report Reviewed, Image Reviewed Assessment/Plan roblem List - Problems (1) Colitis Code(s): K52.9 - NONINFECTIVE GASTROENTERITIS AND COLITIS, UNSPECIFIED (2) Abdominal pain Code(s): R10.9 - UNSPECIFIED ABDOMINAL PAIN (3) C. difficile colitis Code(s): A04.72 - ENTEROCOLITIS D/T CLOSTRIDIUM DIFFICILE, NOT SPCF RECUR (4) Leukocytosis Code(s): D72.829 - ELEVATED WHITE BLOOD CELL COUNT, UNSPECIFIED (5) Fibroids Code(s): D21.9 - BENIGN NEOPLASM OF CONNECTIVE AND OTHER SOFT TISSUE, UNSP (6) Anemia Code(s): D64.9 - ANEMIA, UNSPECIFIED (7) Acute blood loss anemia Code(s): D62 - ACUTE POSTHEMORRHAGIC ANEMIA (8) Tachycardia Code(s): R00.0 - TACHYCARDIA, UNSPECIFIED all the reports noted patient has multiple possibilities including ulcerative colitis,ischemic/ infectious plan will change abx stool studies await cdiff result monitor as per gi rest as per the team
[2019-08-03] MEDS ORDERED: KCL 10 MEQ IVPB 10 MEQ/100 ML INFUS.BAG IVPB SCH (12:00)
[2019-08-03 13:53] LABS: ANISOCYTOSIS 1+; MACROCYTOSIS 0; OVALOCYTE 1+; PLATELET ESTIMATE INCREASED; TEAR DROP CELLS 1+
[2019-08-03] MEDS ORDERED: IRON SUCROSE INJECTION 100 MG in SODIUM CHLORIDE 95 ML IVPB ONE (15:17)
--- NOTE | 2019-08-03 15:39 | PN ---
Physical Exam: SUBJECTIVE: Patient seen and examined, had two loose BMs that were green in color, no blood noted. States that she has been worked up for tachycardia by her PCP and at one point was placed on a holter monitor. She denies any chest pain or shortness of breath. OBJECTIVE: Patient is a 49 year old female with a significant past medical history of anxiety, fibroids and anemia. She presents to the ED on 08/02/2019 with chronic diarrhea for approximately 1 year. She has been having diarrhea that she reports is intermittently bloody. She reports a good appetite despite the loose stools. Patient mostly recently here in the ED on for abdominal pain. An abdomen/ct pelvis showed possible ulcerative colitis. She was discharged home with Flagyl and Amoxicilin. She reports that the Flagyl made her stomach hurt and gave her nausea so she stopped taking the medication. imaging: abdominal ultrasound 08/02/2019:abdominal u/s gall bladder polyp, no evidence of acute rosa, borderline hepaspenagomaly with diffuse fatty inf of liver. abd pelvis c/t w/o contrast 07/28/2019: (1) severe thickening of the transverse descending and retrosigmoid colon with extensive surrounding inflammation and reactive adenopathy. The differential diagnosis includes inflammatory bowel disease such as ulcerative colitis, infectious colitis as c diff and less likely neoplastic disease. (2) Significantly enlarged uterus with a dominnant mass statistically likely fibroid, intramural with a large submucosa/ eddometrial component. 2.4 x 1.6 cm left ovarian follicular cyst. (3) small hypodensity in the medial segment of the left hepatic lobe. Vital Signs Period Temp Pulse Resp BP Sys/Henning Pulse Ox Last 24 Hr 98.7 F-100.2 F 112-126 18-18 104-140/67-88 97-100 GENERAL: Awake, alert, and fully oriented, in no acute distress. HEAD: Normal with no signs of trauma. EYES: Pupils equal, round and reactive to light, extraocular movements intact, sclera anicteric, conjunctiva clear. No lid lag. EARS, NOSE, THROAT: Ears normal, nares patent, oropharynx clear without exudates. Moist mucous membranes. NECK: Normal range of motion, supple without lymphadenopathy, JVD, or masses. LUNGS: Breath sounds equal, clear to auscultation bilaterally. No wheezes, and no crackles. No accessory muscle use. HEART: Regular rate and rhythm, tachycardia 120s ABDOMEN: Soft, nontender, not distended, normoactive bowel sounds, no guarding + abdominal tenderness on lower quadrants MUSCULOSKELETAL: Normal range of motion at all joints. No bony deformities or tenderness. No CVA tenderness. UPPER EXTREMITIES: 2+ pulses, warm, well-perfused. No cyanosis. No clubbing. No peripheral edema. LOWER EXTREMITIES: 2+ pulses, warm, well-perfused. No calf tenderness. No peripheral edema. Laboratory Results - last 24 hr 08/03/19 08/03/19 08/03/19 08:05 08:05 08:05 WBC 17.8 H RBC 4.40 Hgb 7.8 L Hct 26.6 L D MCV 60.4 L MCH 17.8 L MCHC 29.4 L RDW 22.6 H Plt Count 598 H MPV 8.3 Absolute Neuts (auto) 13.7 H Neutrophils % 76.8 Neutrophils % (Manual) 55.4 Band Neutrophils % 18.8 Lymphocytes % 8.9 Lymphocytes % (Manual) 2.0 L Monocytes % 12.4 H Monocytes % (Manual) 11 H Eosinophils % 1.7 Eosinophils % (Manual) 2.0 Basophils % 0.2 Basophils % (Manual) 1.0 Myelocytes % (Man) 1 Promyelocytes % (Man) 0 Blast Cells % (Manual) 0 Nucleated RBC % 0 Metamyelocytes 0 Hypochromia 0 Platelet Estimate Increased Platelet Comment Present Polychromasia 1+ Poikilocytosis 2+ Anisocytosis 1+ Microcytosis 1+ Macrocytosis 0 Tear Drop Cells 1+ Ovalocytes 1+ [place] Cells 2+ Acanthocytes (Spur) 1+ Schistocytes 1+ PT with INR INR Sodium 139 137 Potassium 3.5 3.3 L Chloride 107 107 Carbon Dioxide 25 24 Anion Gap 6 L 6 L BUN 2.7 L* 2.6 L* Creatinine 0.3 L 0.3 L Est GFR (CKD-EPI)AfAm 158.03 158.03 Est GFR (CKD-EPI)NonAf 136.35 136.35 Random Glucose 77 75 Calcium 7.7 L 7.4 L Magnesium 1.9 Iron 7 L TIBC 134 L Iron Saturation 5 L Unsaturated IBC 127 L Ferritin 18.6 Total Bilirubin 0.2 AST 41 H ALT 67 H Alkaline Phosphatase 89 Creatine Kinase 58 C-Reactive Protein 9.0 H Total Protein 4.9 L Albumin 1.7 L Urine HCG, Qual Stool Occult Blood 08/03/19 08/03/19 08/03/19 08:05 08:45 13:18 WBC RBC Hgb Hct MCV MCH MCHC RDW Plt Count MPV Absolute Neuts (auto) Neutrophils % Neutrophils % (Manual) Band Neutrophils % Lymphocytes % Lymphocytes % (Manual) Monocytes % Monocytes % (Manual) Eosinophils % Eosinophils % (Manual) Basophils % Basophils % (Manual) Myelocytes % (Man) Promyelocytes % (Man) Blast Cells % (Manual) Nucleated RBC % Metamyelocytes Hypochromia Platelet Estimate Platelet Comment Polychromasia Poikilocytosis Anisocytosis Microcytosis Macrocytosis Tear Drop Cells Ovalocytes Lloyd Cells Acanthocytes (Spur) Schistocytes PT with INR 18.20 H INR 1.54 H Sodium Potassium Chloride Carbon Dioxide Anion Gap BUN Creatinine Est GFR (CKD-EPI)AfAm Est GFR (CKD-EPI)NonAf Random Glucose Calcium Magnesium Iron TIBC Iron Saturation Unsaturated IBC Ferritin Total Bilirubin AST ALT Alkaline Phosphatase Creatine Kinase C-Reactive Protein Total Protein Albumin Urine HCG, Qual Negative Stool Occult Blood Positive Active Medications Generic Name Dose Route Start Last Admin Trade Name Freq PRN Reason Stop Dose Admin Metronidazole 500 mg in 100 mls @ 100 mls/hr 08/02/19 18:00 08/03/19 09:10 Flagyl 500mg Premixed Ivpb - IVPB 100 mls/hr Q8H-IV FRANCIS Administration Sodium Chloride 1,000 mls @ 125 mls/hr 08/02/19 19:00 08/03/19 06:37 Normal Saline - IV 125 mls/hr ASDIR FRANCIS Administration Cefepime HCl 1 gm/ Dextrose 100 mls @ 200 mls/hr 08/03/19 18:00 IVPB Q8H-IV FRANCIS Protocol Iron Sucrose 100 mg/ Sodium 100 mls @ 200 mls/hr 08/03/19 15:17 Chloride IVPB 08/03/19 15:46 ONCE ONE Lorazepam 0.5 mg 08/02/19 15:26 Ativan - PO Q8H PRN ANXIETY Mesalamine 2,400 mg 08/03/19 10:00 08/03/19 11:21 Asacol Hd - PO 2,400 mg DAILY FRANCIS Administration Vancomycin HCl 125 mg 08/02/19 18:00 08/03/19 13:21 Vancomycin Oral Solution PO 125 mg Q6HPO FRANCIS Administration ASSESSMENT/PLAN: Problem List - Problems (1) Colitis Assessment/Plan: recently treated with PO flagyl and amoxicillin but could not tolerate PO antibiotics. Given Levaquin IV and Flagyl IV in the ED started on ceftriaxone and iv flagyl pending ID evaluation negative for c diff, will d/c vanco started on asacol per GI Code(s): K52.9 - NONINFECTIVE GASTROENTERITIS AND COLITIS, UNSPECIFIED (2) Abdominal pain Assessment/Plan: abd ct shows severe thickening of the transverse descending and retrosigmoid colon with extensive surrounding inflammation and reactive adenopathy. Possible inflammatory bowel disease such as ulcerative colitis, infectious colitis as c diff and less likely neoplastic disease She had a recent abc/ct which showed possible ulcerative colitis. started on flagyl and amoxicillin as an outpatient but did not complete full course. Gi following start on IVF hydration c diff negative Code(s): R10.9 - UNSPECIFIED ABDOMINAL PAIN (3) C. difficile colitis Assessment/Plan: negative for c diff Code(s): A04.72 - ENTEROCOLITIS D/T CLOSTRIDIUM DIFFICILE, NOT SPCF RECUR (4) Leukocytosis Assessment/Plan: WBC 18.4>17. start on Flagyl and Levaquin ID consulted for further recommendations blood and urine cultures pending lactic acid elevated and normalized on repeat Code(s): D72.829 - ELEVATED WHITE BLOOD CELL COUNT, UNSPECIFIED (5) Fibroids Assessment/Plan: will need outpatient follow up Code(s): D21.9 - BENIGN NEOPLASM OF CONNECTIVE AND OTHER SOFT TISSUE, UNSP (6) Anemia Assessment/Plan: positive stool for occult blood iron panel shows acute blood loss anemia hmg/hct trending down will give one dose of IV venofer Code(s): D64.9 - ANEMIA, UNSPECIFIED (7) Acute blood loss anemia Code(s): D62 - ACUTE POSTHEMORRHAGIC ANEMIA (8) Tachycardia Code(s): R00.0 - TACHYCARDIA, UNSPECIFIED (9) Prophylactic measure Assessment/Plan: fen NS @ 125 monitor electrolytes low fiber diet full code Code(s): Z29.9 - ENCOUNTER FOR PROPHYLACTIC MEASURES, UNSPECIFIED Visit type - Emergency Visit Emergency Visit: Yes ED Registration Date: 08/02/19 Care time: The patient presented to the Emergency Department on the above date and was hospitalized for further evaluation of their emergent condition. - New Patient This patient is new to me today: No - Critical Care Critical Care patient: No - Discharge Referral Referred to [facility] Med P.C.: No
[2019-08-03] MEDS ORDERED: DEXTROSE 5%-WATER 100 ML IVPB ONE (17:17)
[2019-08-03] MEDS ORDERED: CEFEPIME HCL 1 GM VIAL (RESTRICTED TO ID) ONE (17:17)
[2019-08-03] MEDS: CEFEPIME 1 GM in DEXTROSE 5%-WATER 100 ML IVPB SCH (18:41)
[2019-08-04] MEDS: SODIUM CHLORIDE 1,000 ML IV SCH ×2 (00:04→19:13)
[2019-08-04] MEDS ORDERED: CEFEPIME HCL 1 GM VIAL (RESTRICTED TO ID) ONE ×3 (00:53→16:54)
[2019-08-04] MEDS ORDERED: DEXTROSE 5%-WATER 100 ML IVPB ONE ×3 (00:54→16:54)
[2019-08-04] MEDS: CEFEPIME 1 GM in DEXTROSE 5%-WATER 100 ML IVPB SCH ×3 (02:01→19:12)
[2019-08-04 08:34] LABS: BASO % 0.2 % (0-2.0); EOS % 2.6 % (0-4.5); HEMATOCRIT 26.6 % (32.4-45.2); HEMOGLOBIN 7.8 GM/dL (10.7-15.3); LYMPH % 10.6 % (8-40); MCHC 29.2 g/dl (32.0-36.0); MEAN CELL VOLUME 60.5 fl (80-96); MEAN PLT VOLUME 8.4 fl (7.5-11.1); MONO % 14.2 % (3.8-10.2); NEUT % 72.4 % (42.8-82.8); PLATELET COUNT 560 K/MM3 (134-434); RDW 23.5 % (11.6-15.6); WHITE BLOOD COUNT 15.3 K/mm3 (4.0-10.0)
[2019-08-04 08:39] LABS: MCH 17.7 pg (25.7-33.7)
[2019-08-04 08:49] LABS: ALBUMIN 1.5 g/dl (3.4-5.0); BILIRUBIN,TOTAL 0.2 mg/dL (0.2-1); CALCIUM 7.4 mg/dL (8.5-10.1); CREATININE 0.4 mg/dL (0.55-1.3); MAGNESIUM 1.9 mg/dL (1.8-2.4); TOT PROT 4.6 g/dl (6.4-8.2)
[2019-08-04 09:06] LABS: BLOOD UREA NITROGEN 2.3 mg/dL (7-18); POTASSIUM 2.8 mmol/L (3.5-5.1)
[2019-08-04] MEDS: MESALAMINE 800 MG TABLET.DR PO SCH (09:44)
[2019-08-04 10:49] LABS: ANISOCYTOSIS 3+; MACROCYTOSIS 0; OVALOCYTE 0; PLATELET ESTIMATE INCREASED
[2019-08-04] MEDS: KCL 10 MEQ IVPB 10 MEQ/100 ML INFUS.BAG IVPB SCH ×3 (11:39→20:02)
--- NOTE | 2019-08-04 12:30 | PN ---
Progress Note, Physician History of Present Illness: stable still abd cramps had dirrhoea but less - Current Medication List Current Medications: Active Medications Metronidazole (Flagyl 500mg Premixed Ivpb -) 500 mg in 100 mls @ 100 mls/hr IVPB Q8H-IV FRANCIS Last Admin: 08/04/19 09:46 Dose: 100 mls/hr Sodium Chloride (Normal Saline -) 1,000 mls @ 125 mls/hr IV ASDIR FRANCIS Last Admin: 08/04/19 00:04 Dose: 125 mls/hr Cefepime HCl 1 gm/ Dextrose 100 mls @ 200 mls/hr IVPB Q8H-IV FRANCIS; Protocol Last Admin: 08/04/19 10:55 Dose: 200 mls/hr Potassium Chloride (Potassium Chloride 10 Meq Premix Ivpb -) 10 meq in 100 mls @ 100 mls/hr IVPB Q60M FRANCIS Stop: 08/04/19 12:44 Last Admin: 08/04/19 11:39 Dose: 100 mls/hr Iron Sucrose 100 mg/ Sodium (Chloride) 100 mls @ 200 mls/hr IVPB ONCE ONE Stop: 08/04/19 13:29 Lorazepam (Ativan -) 0.5 mg PO Q8H PRN PRN Reason: ANXIETY Mesalamine (Asacol Hd -) 2,400 mg PO DAILY [facility] Last Admin: 08/04/19 09:44 Dose: 2,400 mg - Objective Vital Signs: Vital Signs Temperature 99.0 F 08/04/19 06:00 Pulse Rate 112 H 08/04/19 06:00 Respiratory Rate 20 08/04/19 06:00 Blood Pressure 119/73 08/04/19 06:00 O2 Sat by Pulse Oximetry (%) 97 08/03/19 21:00 Constitutional: Yes: Calm, Mild Distress Cardiovascular: Yes: Regular Rate and Rhythm Respiratory: Yes: Regular, CTA Bilaterally Gastrointestinal: Yes: Normal Bowel Sounds, Soft Musculoskeletal: Yes: WNL Extremities: Yes: WNL Neurological: Yes: Alert, Oriented Psychiatric: Yes: Alert, Oriented Labs: CBC, BMP 08/04/19 07:40 08/04/19 07:40 INR, PTT INR 1.54 (0.83-1.09) H 08/03/19 08:05 Assessment/Plan roblem List - Problems (1) Colitis Code(s): K52.9 - NONINFECTIVE GASTROENTERITIS AND COLITIS, UNSPECIFIED (2) Abdominal pain Code(s): R10.9 - UNSPECIFIED ABDOMINAL PAIN (3) C. difficile colitis Code(s): A04.72 - ENTEROCOLITIS D/T CLOSTRIDIUM DIFFICILE, NOT SPCF RECUR (4) Leukocytosis Code(s): D72.829 - ELEVATED WHITE BLOOD CELL COUNT, UNSPECIFIED (5) Fibroids Code(s): D21.9 - BENIGN NEOPLASM OF CONNECTIVE AND OTHER SOFT TISSUE, UNSP (6) Anemia Code(s): D64.9 - ANEMIA, UNSPECIFIED (7) Acute blood loss anemia Code(s): D62 - ACUTE POSTHEMORRHAGIC ANEMIA (8) Tachycardia Code(s): R00.0 - TACHYCARDIA, UNSPECIFIED plan continue abx monitor wbc monitor dirrhea await for all results rest as per the team
[2019-08-04] MEDS ORDERED: IRON SUCROSE INJECTION 100 MG in SODIUM CHLORIDE 95 ML IVPB ONE (13:00)
[2019-08-04] MEDS: LORazepam 0.5 MG TABLET PO PRN (13:44)
--- NOTE | 2019-08-04 15:37 | PN ---
Physical Exam: SUBJECTIVE: Patient seen and examined, had no BM overnight, this morning had one loose stool. no blood noted. States that she has been worked up for tachycardia by her PCP and at one point was placed on a holter monitor. She denies any chest pain or shortness of breath. OBJECTIVE: Patient is a 49 year old female with a significant past medical history of anxiety, fibroids and anemia. She presents to the ED on 08/02/2019 with chronic diarrhea for approximately 1 year. She has been having diarrhea that she reports is intermittently bloody. She reports a good appetite despite the loose stools. Patient mostly recently here in the ED on for abdominal pain. An abdomen/ct pelvis showed possible ulcerative colitis. She was discharged home with Flagyl and Amoxicilin. She reports that the Flagyl made her stomach hurt and gave her nausea so she stopped taking the medication. She returned to the ED 08/02/2019 for increased diarrhea and abdominal pain. imaging: abdominal ultrasound 08/02/2019:abdominal u/s gall bladder polyp, no evidence of acute rosa, borderline hepaspenagomaly with diffuse fatty inf of liver. abd pelvis c/t w/o contrast 07/28/2019: (1) severe thickening of the transverse descending and retrosigmoid colon with extensive surrounding inflammation and reactive adenopathy. The differential diagnosis includes inflammatory bowel disease such as ulcerative colitis, infectious colitis as c diff and less likely neoplastic disease. (2) Significantly enlarged uterus with a dominnant mass statistically likely fibroid, intramural with a large submucosa/ eddometrial component. 2.4 x 1.6 cm left ovarian follicular cyst. (3) small hypodensity in the medial segment of the left hepatic lobe. Vital Signs Period Temp Pulse Resp BP Sys/Henning Pulse Ox Last 24 Hr 99.0 F-99.9 F 112-129 18-20 118-134/72-84 97 GENERAL: Awake, alert, and fully oriented, in no acute distress. HEAD: Normal with no signs of trauma. EYES: Pupils equal, round and reactive to light, extraocular movements intact, sclera anicteric, conjunctiva clear. No lid lag. EARS, NOSE, THROAT: Ears normal, nares patent, oropharynx clear without exudates. Moist mucous membranes. NECK: Normal range of motion, supple without lymphadenopathy, JVD, or masses. LUNGS: Breath sounds equal, clear to auscultation bilaterally. No wheezes, and no crackles. No accessory muscle use. HEART: Regular rate and rhythm, tachycardia 120s ABDOMEN: Soft, nontender, not distended, normoactive bowel sounds, no guarding + abdominal tenderness on lower quadrants MUSCULOSKELETAL: Normal range of motion at all joints. No bony deformities or tenderness. No CVA tenderness. UPPER EXTREMITIES: 2+ pulses, warm, well-perfused. No cyanosis. No clubbing. No peripheral edema. LOWER EXTREMITIES: 2+ pulses, warm, well-perfused. No calf tenderness. No peripheral edema. Laboratory Results - last 24 hr 08/04/19 08/04/19 07:40 07:40 WBC 15.3 H RBC 4.40 Hgb 7.8 L Hct 26.6 L MCV 60.5 L MCH 17.7 L MCHC 29.2 L RDW 23.5 H Plt Count 560 H MPV 8.4 Absolute Neuts (auto) 11.0 H Neutrophils % 72.4 Neutrophils % (Manual) 48.1 Band Neutrophils % 22.1 Lymphocytes % 10.6 Lymphocytes % (Manual) 11.5 D Monocytes % 14.2 H Monocytes % (Manual) 12 H Eosinophils % 2.6 Eosinophils % (Manual) 3.9 D Basophils % 0.2 Basophils % (Manual) 0.0 Myelocytes % (Man) 0 D Promyelocytes % (Man) 0 Blast Cells % (Manual) 0 Nucleated RBC % 3 H Metamyelocytes 3 H D Hypochromia 2+ Platelet Estimate Increased Polychromasia 2+ Poikilocytosis 3+ Anisocytosis 3+ Microcytosis 3+ Macrocytosis 0 Ovalocytes 0 [place] Cells 0 Acanthocytes (Spur) 1+ Schistocytes 2+ Sodium 139 Potassium 2.8 L* Chloride 106 Carbon Dioxide 27 Anion Gap 6 L BUN 2.3 L* Creatinine 0.4 L Est GFR (CKD-EPI)AfAm 143.76 Est GFR (CKD-EPI)NonAf 124.03 Random Glucose 85 Calcium 7.4 L Magnesium 1.9 Total Bilirubin 0.2 AST 17 ALT 45 Alkaline Phosphatase 81 Total Protein 4.6 L Albumin 1.5 L Active Medications Generic Name Dose Route Start Last Admin Trade Name Freq PRN Reason Stop Dose Admin Metronidazole 500 mg in 100 mls @ 100 mls/hr 08/02/19 18:00 08/04/19 09:46 Flagyl 500mg Premixed Ivpb - IVPB 100 mls/hr Q8H-IV FRANCIS Administration Sodium Chloride 1,000 mls @ 125 mls/hr 08/02/19 19:00 08/04/19 00:04 Normal Saline - IV 125 mls/hr ASDIR FRANCIS Administration Cefepime HCl 1 gm/ Dextrose 100 mls @ 200 mls/hr 08/03/19 18:00 08/04/19 10: 55 IVPB 200 mls/hr Q8H-IV FRANCIS Administration Protocol Lorazepam 0.5 mg 08/02/19 15:26 08/04/19 13:44 Ativan - PO 0.5 mg Q8H PRN Administration ANXIETY Mesalamine 2,400 mg 08/03/19 10:00 08/04/19 09:44 Asacol Hd - PO 2,400 mg DAILY FRANCIS Administration ASSESSMENT/PLAN: Problem List - Problems (1) Colitis Assessment/Plan: On cefepime and flagyl with IVF hydration tolerating diet, one loose bm this a.m., denies nausea or vomiting. negative for c diff, oral vanco discontinued started on asacol for possible ulcerative colitis Code(s): K52.9 - NONINFECTIVE GASTROENTERITIS AND COLITIS, UNSPECIFIED (2) Abdominal pain Assessment/Plan: abd ct shows severe thickening of the transverse descending and retrosigmoid colon with extensive surrounding inflammation and reactive adenopathy. Possible inflammatory bowel disease such as ulcerative colitis, infectious colitis as c diff and less likely neoplastic disease Gi following start on IVF hydration, abdominal pain improving c diff negative Code(s): R10.9 - UNSPECIFIED ABDOMINAL PAIN (3) C. difficile colitis Assessment/Plan: negative for c diff Code(s): A04.72 - ENTEROCOLITIS D/T CLOSTRIDIUM DIFFICILE, NOT SPCF RECUR (4) Leukocytosis Assessment/Plan: WBC 18.4>17>15 on cefepime, flagyl. monitor response blood and urine cultures pending lactic acid elevated and normalized on repeat Code(s): D72.829 - ELEVATED WHITE BLOOD CELL COUNT, UNSPECIFIED (5) Fibroids Assessment/Plan: will need outpatient follow up Code(s): D21.9 - BENIGN NEOPLASM OF CONNECTIVE AND OTHER SOFT TISSUE, UNSP (6) Anemia Assessment/Plan: positive stool for occult blood iron panel shows acute blood loss anemia hmg/hct trending down will give 2nd dose of IV venofer today with a goal of 5 doses total Code(s): D64.9 - ANEMIA, UNSPECIFIED (7) Acute blood loss anemia Code(s): D62 - ACUTE POSTHEMORRHAGIC ANEMIA (8) Tachycardia Code(s): R00.0 - TACHYCARDIA, UNSPECIFIED (9) Prophylactic measure Assessment/Plan: fen NS @ 125 monitor electrolytes low fiber diet full code Code(s): Z29.9 - ENCOUNTER FOR PROPHYLACTIC MEASURES, UNSPECIFIED Visit type - Emergency Visit Emergency Visit: Yes ED Registration Date: 08/02/19 Care time: The patient presented to the Emergency Department on the above date and was hospitalized for further evaluation of their emergent condition. - New Patient This patient is new to me today: No - Critical Care Critical Care patient: No - Discharge Referral Referred to [facility] Med P.C.: No
[2019-08-05] MEDS ORDERED: CEFEPIME HCL 1 GM VIAL (RESTRICTED TO ID) ONE ×3 (00:13→17:29)
[2019-08-05] MEDS ORDERED: DEXTROSE 5%-WATER 100 ML IVPB ONE ×3 (00:13→17:29)
[2019-08-05] MEDS: CEFEPIME 1 GM in DEXTROSE 5%-WATER 100 ML IVPB SCH ×3 (01:17→17:40)
[2019-08-05] MEDS: SIMETHICONE 80 MG TAB.CHEW (FP) PO PRN (03:00)
--- NOTE | 2019-08-05 07:47 | PN ---
Progress Note, Physician Chief Complaint: c/o persistent nausea. Pending TTE for tachycardia. No other complaints offered. History of Present Illness: Patient is a 49 year old female with a significant past medical history of anxiety, fibroids and anemia. She presents to the ED with intermittenly bloody chronic diarrhea for approximately 1 year.Seen in ED on for abdominal pain with abdomen/ct pelvis revealing colitis. She was discharged home with Flagyl and Amoxicilin taht she self dc'd. Reports a weight loss of 10lbs in the last week despite eating. She denies any nausea or vomiting currently. - Current Medication List Current Medications: Active Medications Metronidazole (Flagyl 500mg Premixed Ivpb -) 500 mg in 100 mls @ 100 mls/hr IVPB Q8H-IV FRANCIS Last Admin: 08/05/19 02:08 Dose: 100 mls/hr Sodium Chloride (Normal Saline -) 1,000 mls @ 125 mls/hr IV ASDIR FRANCIS Last Admin: 08/04/19 19:13 Dose: 125 mls/hr Cefepime HCl 1 gm/ Dextrose 100 mls @ 200 mls/hr IVPB Q8H-IV FRANCIS; Protocol Last Admin: 08/05/19 01:17 Dose: 200 mls/hr Lorazepam (Ativan -) 0.5 mg PO Q8H PRN PRN Reason: ANXIETY Last Admin: 08/04/19 13:44 Dose: 0.5 mg Mesalamine (Asacol Hd -) 2,400 mg PO DAILY FRANCIS Last Admin: 08/04/19 09:44 Dose: 2,400 mg Simethicone (Mylicon -) 80 mg PO Q4H PRN PRN Reason: GAS Last Admin: 08/05/19 03:00 Dose: 80 mg - Objective Vital Signs: Vital Signs Temperature 98.7 F 08/05/19 06:00 Pulse Rate 124 H 08/05/19 06:00 Respiratory Rate 08/05/19 06:00 Blood Pressure 107/71 08/05/19 06:00 O2 Sat by Pulse Oximetry (%) 98 08/04/19 21:00 Constitutional: Yes: Well Nourished, No Distress, Calm Eyes: Yes: WNL, Conjunctiva Clear HENT: Yes: WNL, Atraumatic, Normocephalic Neck: Yes: WNL, Supple, Trachea Midline Cardiovascular: Yes: Regular Rate and Rhythm, Tachycardia (HR 110-120s) Respiratory: Yes: WNL, Regular, CTA Bilaterally Gastrointestinal: Yes: Normal Bowel Sounds, Soft, Tenderness (to LLQ/RLQ) ...Rectal Exam: Yes: Deferred Breast(s): Yes: WNL Musculoskeletal: Yes: WNL Extremities: Yes: WNL Edema: No Peripheral Pulses WNL: Yes Peripheral Pulses: Left Radial: 2+, Right Radial: 2+, Left Doralis Pedis: 2+, Right Dorsalis Pedis: 2+, Left Femoral: 2+, Right Femoral: 2+ Integumentary: Yes: WNL Neurological: Yes: WNL, Alert, Oriented ...Motor Strength: WNL Psychiatric: Yes: WNL Labs: CBC, BMP 08/04/19 07:40 08/04/19 15:43 INR, PTT INR 1.54 (0.83-1.09) H 08/03/19 08:05 - ....Imaging Cat Scan: Report Reviewed (bd pelvis c/t w/o contrast 07/28/2019: (1) severe thickening of the transverse descending and retrosigmoid colon with extensive surrounding inflammation and reactive adenopathy. The differential diagnosis includes inflammatory bowel disease such as ulcerative colitis, infectious colitis as c diff and less likely neoplastic disease. (2) Significantly enlarged uterus with a dominnant mass statistically likely fibroid, intramural with a large submucosa/eddometrial component. 2.4 x 1.6 cm left ovarian follicular cyst. (3) small hypodensity in the medial segment of the left hepatic lobe.) Ultrasound: Report Reviewed (abdominal ultrasound 08/02/2019:abdominal u/s gall bladder polyp, no evidence of acute rosa, borderline hepaspenagomaly with diffuse fatty inf of liver.) Problem List - Problems (1) Thrombocytosis Assessment/Plan: most likely due to inflammatory process will continue to monitor Code(s): D47.3 - ESSENTIAL (HEMORRHAGIC) THROMBOCYTHEMIA (2) Abdominal pain Assessment/Plan: abd ct shows severe thickening of the transverse descending and retrosigmoid colon with extensive surrounding inflammation and reactive adenopathy. Possible inflammatory bowel disease such as ulcerative colitis, infectious colitis as c diff and less likely neoplastic disease pending flex sig today Code(s): R10.9 - UNSPECIFIED ABDOMINAL PAIN (3) Anemia Assessment/Plan: positive stool for occult blood iron panel shows acute blood loss anemia hgb stable venofer x 5 doses total Code(s): D64.9 - ANEMIA, UNSPECIFIED (4) Colitis Assessment/Plan: appreciate GI consultation pending flexible sigmoidoscopy c/w cefepime and flagyl c/w IVF tolerating diet,denies diarrhea but remains with nausea anitemetics prn negative for c diff c/w asacol for possible ulcerative colitis Code(s): K52.9 - NONINFECTIVE GASTROENTERITIS AND COLITIS, UNSPECIFIED (5) Leukocytosis Assessment/Plan: WBC 18.1 with low grade temps ID following Cdif neg, cx all NGTD c/w flagyl/maxipime Code(s): D72.829 - ELEVATED WHITE BLOOD CELL COUNT, UNSPECIFIED (6) Prophylactic measure Assessment/Plan: FEN Fluids: adequate PO intake Electrolytes: monitor & replete as needed Nutrition: low residue diet DVT OOB, ambulation Dispo Maintain as inpatient full code discharge planning Code(s): Z29.9 - ENCOUNTER FOR PROPHYLACTIC MEASURES, UNSPECIFIED (7) Tachycardia Assessment/Plan: pending TTE for persistent tachycardia patent has had previous holter monitors with no findings in the past Code(s): R00.0 - TACHYCARDIA, UNSPECIFIED Visit type - Emergency Visit Emergency Visit: Yes ED Registration Date: 08/02/19 Care time: The patient presented to the Emergency Department on the above date and was hospitalized for further evaluation of their emergent condition. - New Patient This patient is new to me today: Yes Date on this admission: 08/05/19 - Critical Care Critical Care patient: No - Discharge Referral Referred to [facility] Med P.C.: No
[2019-08-05 08:56] LABS: BASO % 0.1 % (0-2.0); EOS % 1.7 % (0-4.5); HEMATOCRIT 28.8 % (32.4-45.2); HEMOGLOBIN 8.6 GM/dL (10.7-15.3); LYMPH % 9.5 % (8-40); MEAN CELL VOLUME 60.2 fl (80-96); MEAN PLT VOLUME 8.4 fl (7.5-11.1); MONO % 10.9 % (3.8-10.2); NEUT % 77.8 % (42.8-82.8); PLATELET COUNT 631 K/MM3 (134-434); RBC 4.78 M/mm3 (3.60-5.2); RDW 23.2 % (11.6-15.6); WHITE BLOOD COUNT 18.1 K/mm3 (4.0-10.0)
[2019-08-05 09:01] LABS: MCH 18.1 pg (25.7-33.7)
[2019-08-05 09:22] LABS: ALBUMIN 1.6 g/dl (3.4-5.0); BILIRUBIN,TOTAL 0.3 mg/dL (0.2-1); CALCIUM 7.6 mg/dL (8.5-10.1); CREATININE 0.4 mg/dL (0.55-1.3); POTASSIUM 3.2 mmol/L (3.5-5.1); TOT PROT 4.9 g/dl (6.4-8.2)
[2019-08-05] MEDS ORDERED: PT OWN MED DRAWER 7, Y5N ONE (10:43)
[2019-08-05] MEDS: MESALAMINE 800 MG TABLET.DR PO SCH (10:46)
[2019-08-05 11:42] LABS: ANISOCYTOSIS 1+; MACROCYTOSIS 0; OVALOCYTE 2+; PLATELET ESTIMATE INCREASED; TARGET CELLS 1+
[2019-08-05] MEDS ORDERED: ONDANSETRON 4 MG/2 ML VIAL IVPUSH PRN (11:51)
[2019-08-05] MEDS ORDERED: METOCLOPRAMIDE HCL INJECTION 10 MG/2 ML VIAL IVPUSH PRN (11:51)
[2019-08-05] MEDS ORDERED: POTASSIUM CHLORIDE TABS 20 MEQ TABLET.ER (FP) PO ONE (11:52)
--- NOTE | 2019-08-05 12:12 | PN ---
Progress Note, Physician History of Present Illness: still abd cramping nausea - Current Medication List Current Medications: Active Medications Metronidazole (Flagyl 500mg Premixed Ivpb -) 500 mg in 100 mls @ 100 mls/hr IVPB Q8H-IV FRANCIS Last Admin: 08/05/19 10:45 Dose: 100 mls/hr Sodium Chloride (Normal Saline -) 1,000 mls @ 125 mls/hr IV ASDIR FRANCIS Last Admin: 08/04/19 19:13 Dose: 125 mls/hr Cefepime HCl 1 gm/ Dextrose 100 mls @ 200 mls/hr IVPB Q8H-IV FRANCIS; Protocol Last Admin: 08/05/19 10:45 Dose: 200 mls/hr Lorazepam (Ativan -) 0.5 mg PO Q8H PRN PRN Reason: ANXIETY Last Admin: 08/04/19 13:44 Dose: 0.5 mg Mesalamine (Asacol Hd -) 2,400 mg PO DAILY FRANCIS Last Admin: 08/05/19 10:46 Dose: 2,400 mg Metoclopramide HCl (Reglan Injection -) 10 mg IVPUSH Q6H PRN PRN Reason: NAUSEA AND/OR VOMITING Ondansetron HCl (Zofran Injection) 4 mg IVPUSH Q6H PRN PRN Reason: NAUSEA AND/OR VOMITING Simethicone (Mylicon -) 80 mg PO Q4H PRN PRN Reason: GAS Last Admin: 08/05/19 03:00 Dose: 80 mg - Objective Vital Signs: Vital Signs Temperature 97.7 F 08/05/19 09:18 Pulse Rate 119 H 08/05/19 09:18 Respiratory Rate 20 08/05/19 09:18 Blood Pressure 119/77 08/05/19 09:18 O2 Sat by Pulse Oximetry (%) 98 08/04/19 21:00 Constitutional: Yes: Calm, Mild Distress Cardiovascular: Yes: Regular Rate and Rhythm Respiratory: Yes: Regular, CTA Bilaterally Gastrointestinal: Yes: Normal Bowel Sounds, Soft, Other Musculoskeletal: Yes: WNL Extremities: Yes: WNL Neurological: Yes: Alert, Oriented Psychiatric: Yes: Alert, Oriented Labs: CBC, BMP 08/05/19 07:48 08/05/19 07:48 INR, PTT INR 1.54 (0.83-1.09) H 08/03/19 08:05 Assessment/Plan Problem List - Problems (1) Colitis Code(s): K52.9 - NONINFECTIVE GASTROENTERITIS AND COLITIS, UNSPECIFIED (2) Abdominal pain Code(s): R10.9 - UNSPECIFIED ABDOMINAL PAIN (3) C. difficile colitis Code(s): A04.72 - ENTEROCOLITIS D/T CLOSTRIDIUM DIFFICILE, NOT SPCF RECUR (4) Leukocytosis Code(s): D72.829 - ELEVATED WHITE BLOOD CELL COUNT, UNSPECIFIED (5) Fibroids Code(s): D21.9 - BENIGN NEOPLASM OF CONNECTIVE AND OTHER SOFT TISSUE, UNSP (6) Anemia Code(s): D64.9 - ANEMIA, UNSPECIFIED (7) Acute blood loss anemia Code(s): D62 - ACUTE POSTHEMORRHAGIC ANEMIA (8) Tachycardia Code(s): R00.0 - TACHYCARDIA, UNSPECIFIED all the reports noted patient has multiple possibilities including ulcerative colitis,ischemic/ infectious plan await for stool studies rest as per team
--- NOTE | 2019-08-05 13:35 | ECHO ---
Name: CLEO TOMAS Exam:Adult Echocardiogram Study Date: 08/05/2019 09:51 AM Age: 49 yrs Reason For Study: Tachycardia Height: 66 in Weight: 132 lb BSA: 1.7 m2 MMode/2D Measurements & Calculations IVSd: 0.70 cm Ao root diam: 2.8 cm LVIDd: 4.3 cm LA dimension: 2.6 cm LVIDs: 2.8 cm ACS: 1.6 cm LVPWd: 0.70 cm EDV(Teich): 81.4 ml LVOT diam: 2.0 cm ESV(Teich): 30.5 ml LAV (MOD-bp): 45.0 ml TAPSE: 2.2 cm RV S Kwan: 10.9 cm/sec Doppler Measurements & Calculations MV E max kwan: 58.7 cm/sec Ao V2 max: 123.5 cm/sec MV A max kwan: 83.4 cm/sec Ao max P.1 mmHg MV E/A: 0.70 Ao V2 mean: 81.9 cm/sec MV dec time: 0.09 sec Ao mean P.2 mmHg Ao V2 VTI: 17.0 cm JAREK(V,D): 2.8 cm2 LV V1 max P.6 mmHg PA V2 max: 104.5 cm/sec LV V1 max: 107.6 cm/sec PA max P.4 mmHg Med Peak E' Kwan: 10.7 cm/sec Pulm Sys Kwan: 60.2 cm/sec Med E/e': 5.5 Pulm Henning Kwan: 43.9 cm/sec Lat Peak E' Kwan: 14.3 cm/sec Pulm S/D: 1.4 Lat E/e': 4.1 Procedure The study was technically adequate with some images being suboptimal in quality. Left Ventricle The left ventricular size, thickness and function are normal. Left Ventricular Filling pattern is nor mal for age. Right Ventricle The right ventricle is normal in size and function. Atria The left atrial size is normal. Right atrial size is normal. The interatrial septum is intact with no evidence for an atrial septal defect. Mitral Valve The mitral valve is normal. Tricuspid Valve The tricuspid valve is normal. Aortic Valve The aortic valve is normal in structure and function. Pulmonic Valve The pulmonic valve is not well visualized. Great Vessels The aortic root is normal size. Pericardium/Pleura There is no pericardial effusion. Interpretation Summary This was essentially a normal study. There is no comparison study available. ERI\dsedab 08/05/2019 11:22 AM
[2019-08-05] MEDS ORDERED: methylPREDNISolone NA SUCC 40 MG/1 ML VIAL IVPB SCH (18:00)
[2019-08-05] MEDS: SODIUM CHLORIDE 1,000 ML IV SCH (21:25)
[2019-08-05] MEDS: methylPREDNISolone NA SUCC 40 MG/1 ML VIAL IVPB SCH (21:45)
[2019-08-05 22:08] LABS: HEP B CORE AB, TOT Negative (Negative)
[2019-08-06] MEDS ORDERED: CEFEPIME HCL 1 GM VIAL (RESTRICTED TO ID) ONE ×2 (00:58→11:42)
[2019-08-06] MEDS ORDERED: DEXTROSE 5%-WATER 100 ML IVPB ONE ×2 (00:58→11:42)
[2019-08-06] MEDS: CEFEPIME 1 GM in DEXTROSE 5%-WATER 100 ML IVPB SCH ×2 (02:30→11:46)
[2019-08-06 09:28] LABS: ALBUMIN 1.4 g/dl (3.4-5.0); BILIRUBIN,TOTAL 0.4 mg/dL (0.2-1); BLOOD UREA NITROGEN 5.7 mg/dL (7-18); CALCIUM 7.5 mg/dL (8.5-10.1); CREATININE 0.3 mg/dL (0.55-1.3); MAGNESIUM 2.2 mg/dL (1.8-2.4); POTASSIUM 3.5 mmol/L (3.5-5.1); TOT PROT 4.5 g/dl (6.4-8.2)
[2019-08-06 09:40] LABS: BASO % 0.1 % (0-2.0); EOS % 0.4 % (0-4.5); HEMATOCRIT 28.1 % (32.4-45.2); HEMOGLOBIN 8.3 GM/dL (10.7-15.3); LYMPH % 6.6 % (8-40); MCHC 29.4 g/dl (32.0-36.0); MEAN PLT VOLUME 8.3 fl (7.5-11.1); MONO % 9.8 % (3.8-10.2); NEUT % 83.1 % (42.8-82.8); PLATELET COUNT 571 K/MM3 (134-434); RBC 4.61 M/mm3 (3.60-5.2); RDW 23.4 % (11.6-15.6); WHITE BLOOD COUNT 16.8 K/mm3 (4.0-10.0)
[2019-08-06 09:46] LABS: MCH 17.9 pg (25.7-33.7)
[2019-08-06] MEDS: SIMETHICONE 80 MG TAB.CHEW (FP) PO PRN (11:46)
[2019-08-06] MEDS: methylPREDNISolone NA SUCC 40 MG/1 ML VIAL IVPB SCH ×2 (11:46→22:44)
[2019-08-06] MEDS: MESALAMINE 800 MG TABLET.DR PO SCH (11:52)
[2019-08-06] MEDS ORDERED: PT OWN MED DRAWER 7, Y5N ONE ×2 (11:52→14:31)
[2019-08-06 12:10] LABS: ANISOCYTOSIS 1+; MACROCYTOSIS 0; PLATELET ESTIMATE INCREASED
--- NOTE | 2019-08-06 12:11 | PN ---
Progress Note, Physician - Current Medication List Current Medications: Active Medications Metronidazole (Flagyl 500mg Premixed Ivpb -) 500 mg in 100 mls @ 100 mls/hr IVPB Q8H-IV FRANCIS Last Admin: 08/06/19 01:10 Dose: 100 mls/hr Sodium Chloride (Normal Saline -) 1,000 mls @ 125 mls/hr IV ASDIR FRANCIS Last Admin: 08/05/19 21:25 Dose: Not Given Cefepime HCl 1 gm/ Dextrose 100 mls @ 200 mls/hr IVPB Q8H-IV FRANCIS; Protocol Last Admin: 08/06/19 11:46 Dose: 200 mls/hr Lorazepam (Ativan -) 0.5 mg PO Q8H PRN PRN Reason: ANXIETY Last Admin: 08/04/19 13:44 Dose: 0.5 mg Mesalamine (Asacol Hd -) 2,400 mg PO DAILY [facility] Last Admin: 08/06/19 11:52 Dose: 2,400 mg Methylprednisolone Sodium Succinate (Solu-Medrol -) 20 mg IVPB BID [facility] Last Admin: 08/06/19 11:46 Dose: 20 mg Metoclopramide HCl (Reglan Injection -) 10 mg IVPUSH Q6H PRN PRN Reason: NAUSEA AND/OR VOMITING Ondansetron HCl (Zofran Injection) 4 mg IVPUSH Q6H PRN PRN Reason: NAUSEA AND/OR VOMITING Last Admin: 08/05/19 12:48 Dose: 4 mg Simethicone (Mylicon -) 80 mg PO Q4H PRN PRN Reason: GAS Last Admin: 08/06/19 11:46 Dose: 80 mg - Objective Vital Signs: Vital Signs Temperature 98.0 F 08/06/19 09:08 Pulse Rate 112 H 08/06/19 09:08 Respiratory Rate 18 08/06/19 09:08 Blood Pressure 110/67 08/06/19 09:08 O2 Sat by Pulse Oximetry (%) 100 08/06/19 09:09 Labs: CBC, BMP 08/06/19 07:45 08/06/19 07:45 INR, PTT INR 1.54 (0.83-1.09) H 08/03/19 08:05
[2019-08-06] MEDS: SODIUM CHLORIDE 1,000 ML IV SCH ×2 (12:32→14:33)
--- NOTE | 2019-08-06 12:41 | PN ---
Physical Exam: SUBJECTIVE: Patient seen and examined at the bedside. reports she is feeling better, no abdominal pain, but has occasional cramps. no diarrhea, only one bm today. OBJECTIVE: Patient is a 49 year old female with a significant past medical history of anxiety, fibroids and anemia. She presents to the ED with intermittenly bloody chronic diarrhea for approximately 1 year.Seen in ED on for abdominal pain with abdomen/ct pelvis revealing colitis. She was discharged home with Flagyl and Amoxicilin taht she self dc'd. Reports a weight loss of 10lbs in the last week despite eating. She denies any nausea or vomiting currently. started on bacid bid, multivitamins. Vital Signs Period Temp Pulse Resp BP Sys/Henning Pulse Ox Last 24 Hr 98.0 F-100.3 F 106-132 18-20 99-131/55-77 97-100 GENERAL: Awake, alert, and fully oriented, in no acute distress. HEAD: Normal with no signs of trauma. EYES: Pupils equal, round and reactive to light, extraocular movements intact, sclera anicteric, conjunctiva clear. No lid lag. EARS, NOSE, THROAT: Ears normal, nares patent, oropharynx clear without exudates. Moist mucous membranes. NECK: Normal range of motion, supple without lymphadenopathy, JVD, or masses. LUNGS: Breath sounds equal, clear to auscultation bilaterally. No wheezes, and no crackles. No accessory muscle use. HEART: Regular rate and rhythm, tachycardia 100 ABDOMEN: Soft, nontender, not distended, normoactive bowel sounds, no guarding MUSCULOSKELETAL: Normal range of motion at all joints. No bony deformities or tenderness. No CVA tenderness. UPPER EXTREMITIES: 2+ pulses, warm, well-perfused. No cyanosis. No clubbing. No peripheral edema. LOWER EXTREMITIES: 2+ pulses, warm, well-perfused. No calf tenderness. No peripheral edema. Laboratory Results - last 24 hr 08/03/19 08/05/19 08/06/19 08:05 07:48 07:45 WBC 16.8 H RBC 4.61 Hgb 8.3 L Hct 28.1 L MCV 61.0 L MCH 17.9 L MCHC 29.4 L RDW 23.4 H Plt Count 571 H MPV 8.3 Absolute Neuts (auto) 14.0 H Neutrophils % 83.1 H Neutrophils % (Manual) 41.6 L 81.8 Band Neutrophils % 29.7 3.0 Lymphocytes % 6.6 L D Lymphocytes % (Manual) 4.9 L D 9.1 D Monocytes % 9.8 Monocytes % (Manual) 14 H 3 L Eosinophils % 0.4 Eosinophils % (Manual) 1.0 0.0 D Basophils % 0.1 Basophils % (Manual) 1.0 D 0.0 Myelocytes % (Man) 0 0 Promyelocytes % (Man) 0 0 Blast Cells % (Manual) 2 H D 0 D Nucleated RBC % 0 0 Metamyelocytes 1 D 1 Hypochromia 0 0 Platelet Estimate Increased Increased Polychromasia 1+ 1+ Poikilocytosis 1+ Anisocytosis 1+ 1+ Microcytosis 1+ 1+ Macrocytosis 0 0 Target Cells 1+ Ovalocytes 2+ Stomatocytes 1+ Seltzer Cells 2+ 1+ Acanthocytes (Spur) 1+ Fragmented RBCs 1+ Schistocytes 1+ Sodium Potassium Chloride Carbon Dioxide Anion Gap BUN Creatinine Est GFR (CKD-EPI)AfAm Est GFR (CKD-EPI)NonAf Random Glucose Calcium Magnesium Total Bilirubin AST ALT Alkaline Phosphatase Total Protein Albumin Hep A IgM Ab Confirm Negative Hepatitis A Ab Total Negative Hep Bs Antigen Negative Hep Bs Antibody Non reactive Hep B Core Total Ab Negative Hep B Core IgM Ab Negative Hepatitis Be Antibody Negative Hepatitis Be Antigen Negative 08/06/19 07:45 WBC RBC Hgb Hct MCV MCH MCHC RDW Plt Count MPV Absolute Neuts (auto) Neutrophils % Neutrophils % (Manual) Band Neutrophils % Lymphocytes % Lymphocytes % (Manual) Monocytes % Monocytes % (Manual) Eosinophils % Eosinophils % (Manual) Basophils % Basophils % (Manual) Myelocytes % (Man) Promyelocytes % (Man) Blast Cells % (Manual) Nucleated RBC % Metamyelocytes Hypochromia Platelet Estimate Polychromasia Poikilocytosis Anisocytosis Microcytosis Macrocytosis Target Cells Ovalocytes Stomatocytes Lloyd Cells Acanthocytes (Spur) Fragmented RBCs Schistocytes Sodium 138 Potassium 3.5 Chloride 106 Carbon Dioxide 26 Anion Gap 7 L BUN 5.7 L Creatinine 0.3 L Est GFR (CKD-EPI)AfAm 158.03 Est GFR (CKD-EPI)NonAf 136.35 Random Glucose 91 Calcium 7.5 L Magnesium 2.2 Total Bilirubin 0.4 AST 19 ALT 34 Alkaline Phosphatase 84 Total Protein 4.5 L Albumin 1.4 L Hep A IgM Ab Confirm Hepatitis A Ab Total Hep Bs Antigen Hep Bs Antibody Hep B Core Total Ab Hep B Core IgM Ab Hepatitis Be Antibody Hepatitis Be Antigen Active Medications Generic Name Dose Route Start Last Admin Trade Name Freq PRN Reason Stop Dose Admin Metronidazole 500 mg in 100 mls @ 100 mls/hr 08/02/19 18:00 08/06/19 12:39 Flagyl 500mg Premixed Ivpb - IVPB 100 mls/hr Q8H-IV FRANCIS Administration Cefepime HCl 1 gm/ Dextrose 100 mls @ 200 mls/hr 08/03/19 18:00 08/06/19 11: 46 IVPB 200 mls/hr Q8H-IV FRANCIS Administration Protocol Iron Sucrose 100 mg/ Sodium 100 mls @ 200 mls/hr 08/06/19 13:00 Chloride IVPB 08/06/19 13:29 ONCE ONE Sodium Chloride 1,000 mls @ 75 mls/hr 08/06/19 12:45 Normal Saline - IV ASDIR FRANCIS Lorazepam 0.5 mg 08/02/19 15:26 08/04/19 13:44 Ativan - PO 0.5 mg Q8H PRN Administration ANXIETY Mesalamine 2,400 mg 08/03/19 10:00 08/06/19 11:52 Asacol Hd - PO 2,400 mg DAILY FRANCIS Administration Methylprednisolone Sodium Succinate 20 mg 08/05/19 22:00 08/06/19 11:46 Solu-Medrol - IVPB 20 mg BID FRANCIS Administration Metoclopramide HCl 10 mg 08/05/19 11:51 Reglan Injection - IVPUSH Q6H PRN NAUSEA AND/OR VOMITING Ondansetron HCl 4 mg 08/05/19 11:51 08/05/19 12:48 Zofran Injection IVPUSH 4 mg Q6H PRN Administration NAUSEA AND/OR VOMITING Simethicone 80 mg 08/05/19 02:22 08/06/19 11:46 Mylicon - PO 80 mg Q4H PRN Administration GAS ASSESSMENT/PLAN: Problem List - Problems (1) Proctocolitis Assessment/Plan: on steriod taper per gi Code(s): K52.9 - NONINFECTIVE GASTROENTERITIS AND COLITIS, UNSPECIFIED (2) Colitis Assessment/Plan: antibiotics discontinued tolerating diet, one loose bm this a.m., denies nausea or vomiting. negative for c diff, oral vanco discontinued started on asacol for possible ulcerative colitis flex sigmoidoscopy shows severe protocolitis, and started on steriod taper Code(s): K52.9 - NONINFECTIVE GASTROENTERITIS AND COLITIS, UNSPECIFIED (3) Abdominal pain Assessment/Plan: improving, less pain, tolerating diet Code(s): R10.9 - UNSPECIFIED ABDOMINAL PAIN (4) C. difficile colitis Assessment/Plan: negative for c diff Code(s): A04.72 - ENTEROCOLITIS D/T CLOSTRIDIUM DIFFICILE, NOT SPCF RECUR (5) Leukocytosis Assessment/Plan: WBC improving antibiotics d/cd Code(s): D72.829 - ELEVATED WHITE BLOOD CELL COUNT, UNSPECIFIED (6) Fibroids Assessment/Plan: will need outpatient follow up Code(s): D21.9 - BENIGN NEOPLASM OF CONNECTIVE AND OTHER SOFT TISSUE, UNSP (7) Anemia Assessment/Plan: positive stool for occult blood iron panel shows acute blood loss anemia hmg/hct trending down will give IV venofer today with a goal of 5 doses total Code(s): D64.9 - ANEMIA, UNSPECIFIED (8) Acute blood loss anemia Code(s): D62 - ACUTE POSTHEMORRHAGIC ANEMIA (9) Tachycardia Code(s): R00.0 - TACHYCARDIA, UNSPECIFIED (10) Prophylactic measure Assessment/Plan: fen NS @ 75 monitor electrolytes low fiber diet full code Code(s): Z29.9 - ENCOUNTER FOR PROPHYLACTIC MEASURES, UNSPECIFIED Visit type - Emergency Visit Emergency Visit: Yes ED Registration Date: 08/02/19 Care time: The patient presented to the Emergency Department on the above date and was hospitalized for further evaluation of their emergent condition. - New Patient This patient is new to me today: No - Critical Care Critical Care patient: No - Discharge Referral Referred to [facility] Med P.C.: No
[2019-08-06] MEDS ORDERED: IRON SUCROSE INJECTION 100 MG in SODIUM CHLORIDE 95 ML IVPB ONE (13:00)
[2019-08-06] MEDS: MULTIVITAMINS (DAILY MVI) TABLET (FP) PO SCH (14:17)
--- NOTE | 2019-08-06 15:39 | PN.GI ---
GI Progress Note Subjective: States feeling better Had one liquid BM today, no bleeding Flex sig revealed severe proctocolitis Started on IV - Objective Vital Signs: Vital Signs Temperature 98.0 F 08/06/19 09:08 Pulse Rate 112 H 08/06/19 09:08 Respiratory Rate 18 08/06/19 09:08 Blood Pressure 110/67 08/06/19 09:08 O2 Sat by Pulse Oximetry (%) 100 08/06/19 09:09 Constitutional: Calm Eyes: No: Sclera Icterus Cardiovascular: Yes: Tachycardia Respiratory: Yes: CTA Bilaterally Gastrointestinal Inspection: No: Distention ...Auscultate: Yes: Normoactive Bowel Sounds ...Palpate: Yes: Soft. No: Hepatomegaly, Splenomegaly, Tenderness ...Percussion: No: Tympanitic Edema: No (No LE edema) Neurological: Yes: Alert Labs: CBC, BMP 08/06/19 07:45 08/06/19 07:45 INR, PTT INR 1.54 (0.83-1.09) H 08/03/19 08:05 Problem List - Problems (1) Colitis Assessment/Plan: Ulcerative proctocolitis: Improved diarrhea with 1 BM today Unable to determine extent of disease from flex sig performed yesterday Clinical improvement: On methylprednisolone 20mg IV BID. Continue for now Receiving Asacol HD 2.4g daily Calcium / vitamin D supplementation Lactose / Low fiber diet Am Labs, repeat PT/INR ordered given baseline coagulopathy GI prophylaxis. DVT prophylaxis. Higher risk of VTE in IBD flare patients. Communicated with [employer] caring for Ms. aFll. If significant GI bleeding when chemical DVT prophylaxis started, will need to adjust. Hep B surface antibiody negative. Will need hep B vaccination Quantiferon pending Patient aware that she will need follow-up with her quality compliance coordinator Dr. Leon in 1 week after discharge Code(s): K52.9 - NONINFECTIVE GASTROENTERITIS AND COLITIS, UNSPECIFIED
[2019-08-06] MEDS: LORazepam 0.5 MG TABLET PO PRN (22:44)
[2019-08-06] MEDS: LACTOBACILLUS ACIDOPHILUS 1 TABLET PO SCH (22:45)
[2019-08-06] MEDS: HEPARIN NA (PORCINE) 5,000 UNITS/ML 1ML VIAL SQ SCH ×2 (22:45→23:30)
[2019-08-07] MEDS: SODIUM CHLORIDE 1,000 ML IV SCH ×3 (04:11→17:55)
[2019-08-07] MEDS: HEPARIN NA (PORCINE) 5,000 UNITS/ML 1ML VIAL SQ SCH ×3 (06:00→21:48)
--- NOTE | 2019-08-07 07:55 | PN ---
Progress Note, Physician Chief Complaint: One episode of bloody diarrhea today. Feels better and anxious to go home History of Present Illness: Patient is a 49 year old female with a significant past medical history of anxiety, fibroids and anemia. She presents to the ED with intermittenly bloody chronic diarrhea for approximately 1 year.Seen in ED on for abdominal pain with abdomen/ct pelvis revealing colitis. She was discharged home with Flagyl and Amoxicilin taht she self dc'd. Reports a weight loss of 10lbs in the last week despite eating. She denies any nausea or vomiting currently. - Current Medication List Current Medications: Active Medications Calcium/Vitamin D (Oscal 250 Mg+D -) 2 tab PO DAILY [facility] Heparin Sodium (Porcine) (Heparin -) 5,000 unit SQ TID [facility] Last Admin: 08/07/19 06:00 Dose: Not Given Sodium Chloride (Normal Saline -) 1,000 mls @ 75 mls/hr IV ASDIR [facility] Last Admin: 08/07/19 04:11 Dose: 75 mls/hr Lactobacillus Acidophilus (Bacid -) 1 tab PO BID [facility] Last Admin: 08/06/19 22:45 Dose: 1 tab Lorazepam (Ativan -) 0.5 mg PO Q8H PRN PRN Reason: ANXIETY Last Admin: 08/06/19 22:44 Dose: 0.5 mg Mesalamine (Asacol Hd -) 2,400 mg PO DAILY [facility] Last Admin: 08/06/19 11:52 Dose: 2,400 mg Methylprednisolone Sodium Succinate (Solu-Medrol -) 20 mg IVPB BID [facility] Last Admin: 08/06/19 22:44 Dose: 20 mg Multivitamins/Minerals/Vitamin C (Tab-A-Vit -) 1 tab PO DAILY [facility] Last Admin: 08/06/19 14:17 Dose: 1 tab Pantoprazole Sodium (Protonix -) 20 mg PO DAILY [facility] - Objective Vital Signs: Vital Signs Temperature 97.9 F 08/07/19 06:00 Pulse Rate 110 H 08/07/19 06:00 Respiratory Rate 18 08/07/19 06:00 Blood Pressure 113/71 08/07/19 06:00 O2 Sat by Pulse Oximetry (%) 99 08/06/19 21:00 Additional Findings/Remarks: Constitutional: Yes: Well Nourished, No Distress, Calm Eyes: Yes: WNL, Conjunctiva Clear HENT: Yes: WNL, Atraumatic, Normocephalic Neck: Yes: WNL, Supple, Trachea Midline Cardiovascular: Yes: Regular Rate and Rhythm, Tachycardia (HR 110-120s) Respiratory: Yes: WNL, Regular, CTA Bilaterally Gastrointestinal: Yes: Normal Bowel Sounds, Soft, Tenderness (to LLQ/RLQ) ...Rectal Exam: Yes: Deferred Breast(s): Yes: WNL Musculoskeletal: Yes: WNL Extremities: Yes: WNL Edema: No Peripheral Pulses WNL: Yes Peripheral Pulses: Left Radial: 2+, Right Radial: 2+, Left Doralis Pedis: 2+, Right Dorsalis Pedis: 2+, Left Femoral: 2+, Right Femoral: 2+ Integumentary: Yes: WNL Neurological: Yes: WNL, Alert, Oriented ...Motor Strength: WNL Psychiatric: Yes: WNL Labs: CBC, BMP 08/06/19 07:45 08/06/19 07:45 INR, PTT INR 1.54 (0.83-1.09) H 08/03/19 08:05 Problem List - Problems (1) Thrombocytosis Assessment/Plan: Plt 544 most likely due to inflammatory process will continue to monitor Code(s): D47.3 - ESSENTIAL (HEMORRHAGIC) THROMBOCYTHEMIA (2) Abdominal pain Assessment/Plan: abd ct shows severe thickening of the transverse descending and retrosigmoid colon with extensive surrounding inflammation and reactive adenopathy. Possible inflammatory bowel disease such as ulcerative colitis, infectious colitis as c diff and less likely neoplastic disease flex sig revealed severe proctocolitis Code(s): R10.9 - UNSPECIFIED ABDOMINAL PAIN (3) Anemia Assessment/Plan: positive stool for occult blood iron panel shows acute blood loss anemia hgb stable Code(s): D64.9 - ANEMIA, UNSPECIFIED (4) Colitis Assessment/Plan: appreciate GI consultation Flex sig revealed Ulcerative proctocolitis cefepime and flagyl completed tolerating diet, diarrhea continues but less anitemetics prn negative for c diff c/w asacol c/w methylprednisolone 20mg IV BID. Code(s): K52.9 - NONINFECTIVE GASTROENTERITIS AND COLITIS, UNSPECIFIED (5) Leukocytosis Assessment/Plan: WBC 18.8 afebrile ID following Cdif neg, cx all NGTD flagyl/maxipime completed Code(s): D72.829 - ELEVATED WHITE BLOOD CELL COUNT, UNSPECIFIED (6) Prophylactic measure Assessment/Plan: FEN Fluids: adequate PO intake Electrolytes: monitor & replete as needed Nutrition: low residue diet DVT OOB, ambulation Dispo Maintain as inpatient full code discharge planning Code(s): Z29.9 - ENCOUNTER FOR PROPHYLACTIC MEASURES, UNSPECIFIED (7) Tachycardia Assessment/Plan: tachycardia persists TTE normal patent has had previous holter monitors with no findings in the past will try low dose BB ti see if tachy improves Code(s): R00.0 - TACHYCARDIA, UNSPECIFIED Visit type - Emergency Visit Emergency Visit: Yes ED Registration Date: 08/02/19 Care time: The patient presented to the Emergency Department on the above date and was hospitalized for further evaluation of their emergent condition. - New Patient This patient is new to me today: No - Critical Care Critical Care patient: No - Discharge Referral Referred to [facility] No
[2019-08-07 08:51] LABS: BASO % 0.1 % (0-2.0); EOS % 0.1 % (0-4.5); HEMATOCRIT 27.6 % (32.4-45.2); HEMOGLOBIN 8.2 GM/dL (10.7-15.3); LYMPH % 5.8 % (8-40); MCHC 29.7 g/dl (32.0-36.0); MEAN CELL VOLUME 61.2 fl (80-96); MEAN PLT VOLUME 8.2 fl (7.5-11.1); MONO % 7.3 % (3.8-10.2); NEUT % 86.7 % (42.8-82.8); PLATELET COUNT 544 K/MM3 (134-434); RDW 23.2 % (11.6-15.6); WHITE BLOOD COUNT 18.8 K/mm3 (4.0-10.0)
[2019-08-07 08:55] LABS: MCH 18.2 pg (25.7-33.7)
[2019-08-07 09:10] LABS: ALBUMIN 1.5 g/dl (3.4-5.0); BILIRUBIN,TOTAL 0.4 mg/dL (0.2-1); BLOOD UREA NITROGEN 8.2 mg/dL (7-18); CALCIUM 7.4 mg/dL (8.5-10.1); CREATININE 0.3 mg/dL (0.55-1.3); MAGNESIUM 2.1 mg/dL (1.8-2.4); POTASSIUM 3.4 mmol/L (3.5-5.1); TOT PROT 4.6 g/dl (6.4-8.2)
[2019-08-07 09:29] LABS: INR 1.69 (0.83-1.09)
[2019-08-07] MEDS: MESALAMINE 800 MG TABLET.DR PO SCH (09:57)
[2019-08-07] MEDS: PANTOPRAZOLE 20 MG TABLET PO SCH (09:58)
[2019-08-07] MEDS: CALCIUM 250MG/VIT-D 125 UNITS 1 COMBO TABLET PO SCH (09:58)
[2019-08-07] MEDS: LACTOBACILLUS ACIDOPHILUS 1 TABLET PO SCH ×2 (09:58→21:48)
[2019-08-07] MEDS: MULTIVITAMINS (DAILY MVI) TABLET (FP) PO SCH (09:58)
[2019-08-07] MEDS: methylPREDNISolone NA SUCC 40 MG/1 ML VIAL IVPB SCH ×2 (10:05→21:48)
--- NOTE | 2019-08-07 11:34 | PN ---
Progress Note, Physician History of Present Illness: improving scopy result noted - Current Medication List Current Medications: Active Medications Calcium/Vitamin D (Oscal 250 Mg+D -) 2 tab PO DAILY [facility] Last Admin: 08/07/19 09:58 Dose: 2 tab Heparin Sodium (Porcine) (Heparin -) 5,000 unit SQ TID [facility] Last Admin: 08/07/19 06:00 Dose: Not Given Sodium Chloride (Normal Saline -) 1,000 mls @ 75 mls/hr IV ASDIR [facility] Last Admin: 08/07/19 04:11 Dose: 75 mls/hr Lactobacillus Acidophilus (Bacid -) 1 tab PO BID [facility] Last Admin: 08/07/19 09:58 Dose: 1 tab Lorazepam (Ativan -) 0.5 mg PO Q8H PRN PRN Reason: ANXIETY Last Admin: 08/06/19 22:44 Dose: 0.5 mg Mesalamine (Asacol Hd -) 2,400 mg PO DAILY [facility] Last Admin: 08/07/19 09:57 Dose: 2,400 mg Methylprednisolone Sodium Succinate (Solu-Medrol -) 20 mg IVPB BID [facility] Last Admin: 08/07/19 10:05 Dose: 20 mg Multivitamins/Minerals/Vitamin C (Tab-A-Vit -) 1 tab PO DAILY [facility] Last Admin: 08/07/19 09:58 Dose: 1 tab Pantoprazole Sodium (Protonix -) 20 mg PO DAILY [facility] Last Admin: 08/07/19 09:58 Dose: 20 mg - Objective Vital Signs: Vital Signs Temperature 97.9 F 08/07/19 06:00 Pulse Rate 110 H 08/07/19 06:00 Respiratory Rate 18 08/07/19 06:00 Blood Pressure 113/71 08/07/19 06:00 O2 Sat by Pulse Oximetry (%) 99 08/06/19 21:00 Constitutional: Yes: Calm, Mild Distress Cardiovascular: Yes: S1, S2 Respiratory: Yes: Regular, CTA Bilaterally Gastrointestinal: Yes: Normal Bowel Sounds, Soft, Tenderness Musculoskeletal: Yes: WNL Extremities: Yes: WNL Neurological: Yes: Alert, Oriented Psychiatric: Yes: Alert, Oriented Labs: CBC, BMP 08/07/19 08:27 08/07/19 08:27 INR, PTT INR 1.69 (0.83-1.09) H 08/07/19 08:27 Assessment/Plan Problem List - Problems (1) Colitis Code(s): K52.9 - NONINFECTIVE GASTROENTERITIS AND COLITIS, UNSPECIFIED (2) Abdominal pain Code(s): R10.9 - UNSPECIFIED ABDOMINAL PAIN (3) C. difficile colitis Code(s): A04.72 - ENTEROCOLITIS D/T CLOSTRIDIUM DIFFICILE, NOT SPCF RECUR (4) Leukocytosis Code(s): D72.829 - ELEVATED WHITE BLOOD CELL COUNT, UNSPECIFIED (5) Fibroids Code(s): D21.9 - BENIGN NEOPLASM OF CONNECTIVE AND OTHER SOFT TISSUE, UNSP (6) Anemia Code(s): D64.9 - ANEMIA, UNSPECIFIED (7) Acute blood loss anemia Code(s): D62 - ACUTE POSTHEMORRHAGIC ANEMIA (8) Tachycardia Code(s): R00.0 - TACHYCARDIA, UNSPECIFIED all the reports noted patient has multiple possibilities including ulcerative colitis,ischemic/ infectious plan await for stool studies rest as per team continue abx iv
[2019-08-07] MEDS ORDERED: METOPROLOL TARTRATE 25 MG TABLET (FP) PO SCH (13:15)
[2019-08-07] MEDS: LORazepam 0.5 MG TABLET PO PRN (14:14)
--- NOTE | 2019-08-07 15:03 | PN.GI ---
GI Progress Note Subjective: Pt seen/examined at bedside, feeling better overall, had 3 loose bms since ~6pm yesterday still blood streaked, abdominal pain has resolved. Appetite slightly improving. - Objective Vital Signs: Vital Signs Temperature 97.9 F 08/07/19 06:00 Pulse Rate 124 H 08/07/19 10:00 Respiratory Rate 18 08/07/19 10:00 Blood Pressure 120/78 08/07/19 10:00 O2 Sat by Pulse Oximetry (%) 95 08/07/19 09:00 Constitutional: Well Nourished, No Distress, Calm Cardiovascular: Yes: WNL, Regular Rate and Rhythm Respiratory: Yes: WNL, Regular, CTA Bilaterally ...Palpate: Yes: Other (Abd soft, nt, nd) Labs: CBC, BMP 08/07/19 08:27 08/07/19 08:27 INR, PTT INR 1.69 (0.83-1.09) H 08/07/19 08:27 Problem List - Problems (1) Proctocolitis Assessment/Plan: 49yo female presenting with diarrhea s/p flex sig revealing moderate-severe proctocolitis, biopsies pending. C difficile negative. Still with loose blood streaked bm (3 since yesterday), though overall has improved. -Continue solumedrol 20mg bid for now until bm frequency/bleeding further improves then can transition to po -Continue asacol 2.4g daily -Await stool ova/parasites results for completion -Await colonoscopy pathology results -Iron replacement therapy -Quantiferron negative and HBV nonimmune - will need to initiate HBV vaccination series -DVT prophylaxis -Unclear etiology for elevated PT/INR, possibly nutritional component - recommend check TSH (pt also tachycardic) r/o thyoid disease and also consider hematology consult Code(s): K52.9 - NONINFECTIVE GASTROENTERITIS AND COLITIS, UNSPECIFIED (2) Gallbladder polyp Assessment/Plan: Diminutive gallbladder polyp seen on recent US, LFTs otherwise normal. Pt will require US for surveillance as outpt. Code(s): K82.4 - CHOLESTEROLOSIS OF GALLBLADDER
--- NOTE | 2019-08-07 19:47 | PATH ---
Surgical Pathology Report Patient Name: CLEO TOMAS [facility]. Rec. #: [id number] /Age/Gender: 1970 (Age: 49) / F Account: [id number] Location: [address] [place] [address] Taken: 08/05/2019 Received: 08/06/2019 Reported: 08/07/2019 Physicians: Nat Mclain MD Specimen(s) Received A: SIGMOID COLON B: BX RECTUM Clinical History Melena, anemia Postoperative diagnosis: Colitis, proctitis, rule out ulcerative colitis Final Diagnosis A. SIGMOID COLON BIOPSY: COLONIC MUCOSA WITH ACTIVE CHRONIC INFLAMMATION OF LAMINA PROPRIA, ACUTE CRYPTITIS, CRYPT ABSCESS, AND CRYPTAL DISTORTION. SEE COMMENT. B. RECTUM, BIOPSY: COLONIC MUCOSA WITH ACTIVE CHRONIC INFLAMMATION OF LAMINA PROPRIA, ACUTE CRYPTITIS, CRYPT ABSCESS, AND CRYPTAL DISTORTION. SEE COMMENT. Comment: There is no dysplasia, granuloma, parasite or viral inclusions identified. The above histologic features are consistent with active chronic crypt destructive colitis pattern. This pattern, while characteristic of chronic idiopathic inflammatory bowel disease, is nonspecific. This may also be seen in chronic enteric infections, drug reactions, and parasitic infections. Suggest clinical correlation. Electronically Signed Jc Briggs M.D. Gross Description A. Received in formalin, labeled "sigmoid colon biopsy" are multiple amador, irregular portions of soft tissue measuring 0.1 to 0.4 cm. in greatest dimension. The specimens are submitted in toto in one cassette. B. Received in formalin, labeled "rectum biopsy" are multiple amador, irregular portions of soft tissue measuring 0.2 to 0.3 cm. in greatest dimension. The specimens are submitted in toto in one cassette. __ KWS/08/06/2019 sulki/08/06/2019
[2019-08-08] MEDS: HEPARIN NA (PORCINE) 5,000 UNITS/ML 1ML VIAL SQ SCH ×3 (06:36→22:24)
[2019-08-08] MEDS: MULTIVITAMINS (DAILY MVI) TABLET (FP) PO SCH (08:59)
[2019-08-08] MEDS: LACTOBACILLUS ACIDOPHILUS 1 TABLET PO SCH ×2 (08:59→22:24)
[2019-08-08] MEDS: methylPREDNISolone NA SUCC 40 MG/1 ML VIAL IVPB SCH ×2 (08:59→22:24)
[2019-08-08] MEDS: SODIUM CHLORIDE 1,000 ML IV SCH ×3 (08:59→22:25)
[2019-08-08] MEDS: PANTOPRAZOLE 20 MG TABLET PO SCH (08:59)
[2019-08-08] MEDS: CALCIUM 250MG/VIT-D 125 UNITS 1 COMBO TABLET PO SCH (08:59)
[2019-08-08 09:06] LABS: BASO % 0.2 % (0-2.0); EOS % 0.1 % (0-4.5); HEMATOCRIT 27.1 % (32.4-45.2); HEMOGLOBIN 8.2 GM/dL (10.7-15.3); LYMPH % 8.2 % (8-40); MCHC 30.1 g/dl (32.0-36.0); MEAN CELL VOLUME 61.4 fl (80-96); MEAN PLT VOLUME 8.2 fl (7.5-11.1); MONO % 8.8 % (3.8-10.2); NEUT % 82.7 % (42.8-82.8); PLATELET COUNT 515 K/MM3 (134-434); RBC 4.42 M/mm3 (3.60-5.2); RDW 23.6 % (11.6-15.6); WHITE BLOOD COUNT 14.4 K/mm3 (4.0-10.0)
[2019-08-08 09:25] LABS: MCH 18.4 pg (25.7-33.7)
[2019-08-08 09:41] LABS: ALBUMIN 1.5 g/dl (3.4-5.0); BILIRUBIN,TOTAL 0.2 mg/dL (0.2-1); BLOOD UREA NITROGEN 10.2 mg/dL (7-18); CALCIUM 7.9 mg/dL (8.5-10.1); CREATININE 0.3 mg/dL (0.55-1.3); MAGNESIUM 2.2 mg/dL (1.8-2.4); POTASSIUM 3.4 mmol/L (3.5-5.1)
[2019-08-08] MEDS ORDERED: HEPATITIS B VIRUS VACCINE-PF 20 MCG/1ML PRE-FILLED SYRINGE IM ONE (10:00)
[2019-08-08] MEDS: MESALAMINE 800 MG TABLET.DR PO SCH (11:01)
[2019-08-08] MEDS ORDERED: POTASSIUM CHLORIDE TABS 20 MEQ TABLET.ER (FP) PO ONE (11:23)
--- NOTE | 2019-08-08 13:02 | PN ---
Progress Note, Physician History of Present Illness: improving still with blood in stools abd pain better - Current Medication List Current Medications: Active Medications Calcium/Vitamin D (Oscal 250 Mg+D -) 2 tab PO DAILY [facility] Last Admin: 08/08/19 08:59 Dose: Not Given Heparin Sodium (Porcine) (Heparin -) 5,000 unit SQ TID [facility] Last Admin: 08/08/19 06:36 Dose: Not Given Sodium Chloride (Normal Saline -) 1,000 mls @ 75 mls/hr IV ASDIR [facility] Last Admin: 08/08/19 08:59 Dose: 75 mls/hr Lactobacillus Acidophilus (Bacid -) 1 tab PO BID [facility] Last Admin: 08/08/19 08:59 Dose: 1 tab Lorazepam (Ativan -) 0.5 mg PO Q8H PRN PRN Reason: ANXIETY Last Admin: 08/07/19 14:14 Dose: 0.5 mg Mesalamine (Asacol Hd -) 2,400 mg PO DAILY [facility] Last Admin: 08/08/19 11:01 Dose: 2,400 mg Methylprednisolone Sodium Succinate (Solu-Medrol -) 20 mg IVPB BID [facility] Last Admin: 08/08/19 08:59 Dose: 20 mg Multivitamins/Minerals/Vitamin C (Tab-A-Vit -) 1 tab PO DAILY [facility] Last Admin: 08/08/19 08:59 Dose: 1 tab Pantoprazole Sodium (Protonix -) 20 mg PO DAILY [facility] Last Admin: 08/08/19 08:59 Dose: 20 mg - Objective Vital Signs: Vital Signs Temperature 97.9 F 08/08/19 06:00 Pulse Rate 120 H 08/08/19 10:00 Respiratory Rate 18 08/08/19 10:00 Blood Pressure 130/80 08/08/19 10:00 O2 Sat by Pulse Oximetry (%) 100 08/08/19 09:00 Constitutional: Yes: Calm, Mild Distress Cardiovascular: Yes: S1, S2 Respiratory: Yes: Regular, CTA Bilaterally Gastrointestinal: Yes: Normal Bowel Sounds, Soft Musculoskeletal: Yes: WNL Extremities: Yes: WNL Wound/Incision: Yes: Unapproximated Neurological: Yes: Alert Psychiatric: Yes: Alert, Oriented Labs: CBC, BMP 08/08/19 08:19 08/08/19 08:19 INR, PTT INR 1.69 (0.83-1.09) H 08/07/19 08:27 Assessment/Plan Problem List - Problems (1) Colitis Code(s): K52.9 - NONINFECTIVE GASTROENTERITIS AND COLITIS, UNSPECIFIED (2) Abdominal pain Code(s): R10.9 - UNSPECIFIED ABDOMINAL PAIN (3) C. difficile colitis Code(s): A04.72 - ENTEROCOLITIS D/T CLOSTRIDIUM DIFFICILE, NOT SPCF RECUR (4) Leukocytosis Code(s): D72.829 - ELEVATED WHITE BLOOD CELL COUNT, UNSPECIFIED (5) Fibroids Code(s): D21.9 - BENIGN NEOPLASM OF CONNECTIVE AND OTHER SOFT TISSUE, UNSP (6) Anemia Code(s): D64.9 - ANEMIA, UNSPECIFIED (7) Acute blood loss anemia Code(s): D62 - ACUTE POSTHEMORRHAGIC ANEMIA (8) Tachycardia Code(s): R00.0 - TACHYCARDIA, UNSPECIFIED all the reports noted patient has multiple possibilities including ulcerative colitis,ischemic/ infectious plan await for stool studies continue to moitor rest as pert he team steroids
[2019-08-08 13:05] VITALS: BMI 22.6
[2019-08-08 14:42] LABS: ANISOCYTOSIS 1+; MACROCYTOSIS 0; OVALOCYTE 2+; PLATELET ESTIMATE INCREASED; TEAR DROP CELLS 1+; TOXIC GRANULATION 2+
--- NOTE | 2019-08-08 15:18 | PN ---
Progress Note, Physician Chief Complaint: One episode of bloody diarrhea today. Abdominal pain/cramping subsided. 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 Anxious to go home History of Present Illness: Patient is a 49 year old female with a significant past medical history of anxiety, fibroids and anemia. She presents to the ED with intermittenly bloody chronic diarrhea for approximately 1 year.Seen in ED on for abdominal pain with abdomen/ct pelvis revealing colitis. She was discharged home with Flagyl and Amoxicilin taht she self dc'd. Reports a weight loss of 10lbs in the last week despite eating. She denies any nausea or vomiting currently. - Current Medication List Current Medications: Active Medications Calcium/Vitamin D (Oscal 250 Mg+D -) 2 tab PO DAILY [facility] Last Admin: 08/08/19 08:59 Dose: Not Given Folic Acid (Folic Acid -) 1 mg PO DAILY [facility] Heparin Sodium (Porcine) (Heparin -) 5,000 unit SQ TID [facility] Last Admin: 08/08/19 13:11 Dose: Not Given Sodium Chloride (Normal Saline -) 1,000 mls @ 75 mls/hr IV ASDIR [facility] Last Admin: 08/08/19 13:10 Dose: Not Given Lactobacillus Acidophilus (Bacid -) 1 tab PO BID [facility] Last Admin: 08/08/19 08:59 Dose: 1 tab Lorazepam (Ativan -) 0.5 mg PO Q8H PRN PRN Reason: ANXIETY Last Admin: 08/07/19 14:14 Dose: 0.5 mg Mesalamine (Asacol Hd -) 2,400 mg PO DAILY [facility] Last Admin: 08/08/19 11:01 Dose: 2,400 mg Methylprednisolone Sodium Succinate (Solu-Medrol -) 20 mg IVPB BID [facility] Last Admin: 08/08/19 08:59 Dose: 20 mg Multivitamins/Minerals/Vitamin C (Tab-A-Vit -) 1 tab PO DAILY [facility] Last Admin: 08/08/19 08:59 Dose: 1 tab Pantoprazole Sodium (Protonix -) 20 mg PO DAILY [facility] Last Admin: 08/08/19 08:59 Dose: 20 mg - Objective Vital Signs: Vital Signs Temperature 97.9 F 08/08/19 06:00 Pulse Rate 120 H 08/08/19 10:00 Respiratory Rate 18 08/08/19 10:00 Blood Pressure 130/80 08/08/19 10:00 O2 Sat by Pulse Oximetry (%) 100 08/08/19 09:00 Additional Findings/Remarks: Constitutional: Yes: Well Nourished, No Distress, Calm Eyes: Yes: WNL, Conjunctiva Clear HENT: Yes: WNL, Atraumatic, Normocephalic Neck: Yes: WNL, Supple, Trachea Midline Cardiovascular: Yes: Regular Rate and Rhythm, Tachycardia (HR 110-120s) Respiratory: Yes: WNL, Regular, CTA Bilaterally Gastrointestinal: Yes: Normal Bowel Sounds, Soft, Tenderness (to LLQ/RLQ) ...Rectal Exam: Yes: Deferred Breast(s): Yes: WNL Musculoskeletal: Yes: WNL Extremities: Yes: WNL Edema: No Peripheral Pulses WNL: Yes Peripheral Pulses: Left Radial: 2+, Right Radial: 2+, Left Doralis Pedis: 2+, Right Dorsalis Pedis: 2+, Left Femoral: 2+, Right Femoral: 2+ Integumentary: Yes: WNL Neurological: Yes: WNL, Alert, Oriented ...Motor Strength: WNL Psychiatric: Yes: WNL Labs: CBC, BMP 08/08/19 08:19 08/08/19 08:19 INR, PTT INR 1.69 (0.83-1.09) H 08/07/19 08:27 Problem List - Problems (1) Thrombocytosis Assessment/Plan: Plt 515 most likely due to inflammatory process will continue to monitor Code(s): D47.3 - ESSENTIAL (HEMORRHAGIC) THROMBOCYTHEMIA (2) Abdominal pain Assessment/Plan: abd ct shows severe thickening of the transverse descending and retrosigmoid colon with extensive surrounding inflammation and reactive adenopathy. flex sig revealed severe proctocolitis abdominal pain subsiding-1 episode of diarrhea c/w steroids Code(s): R10.9 - UNSPECIFIED ABDOMINAL PAIN (3) Anemia Assessment/Plan: positive stool for occult blood iron panel shows acute blood loss anemia hgb stable c/w folic acid Code(s): D64.9 - ANEMIA, UNSPECIFIED (4) Colitis Assessment/Plan: appreciate GI consultation Flex sig revealed Ulcerative proctocolitis cefepime and flagyl completed tolerating diet, 1 episode of diarrhea antiemetic prn negative for c diff c/w asacol c/w methylprednisolone 20mg IV BID. Code(s): K52.9 - NONINFECTIVE GASTROENTERITIS AND COLITIS, UNSPECIFIED (5) Leukocytosis Assessment/Plan: WBC 14.4 afebrile ID following Cdif neg, cx all NGTD flagyl/maxipime completed Code(s): D72.829 - ELEVATED WHITE BLOOD CELL COUNT, UNSPECIFIED (6) Prophylactic measure Assessment/Plan: FEN Fluids: adequate PO intake Electrolytes: monitor & replete as needed Nutrition: low residue diet DVT OOB, ambulation Dispo Maintain as inpatient full code discharge planning Code(s): Z29.9 - ENCOUNTER FOR PROPHYLACTIC MEASURES, UNSPECIFIED (7) Tachycardia Assessment/Plan: tachycardia persists TTE normal patent has had previous holter monitors with no findings in the past pt does not want to try BB Code(s): R00.0 - TACHYCARDIA, UNSPECIFIED Visit type - Emergency Visit Emergency Visit: Yes ED Registration Date: 08/02/19 Care time: The patient presented to the Emergency Department on the above date and was hospitalized for further evaluation of their emergent condition. - New Patient This patient is new to me today: No - Critical Care Critical Care patient: No
--- NOTE | 2019-08-08 18:08 | PN.GI ---
GI Progress Note Subjective: No acute events 1 loose BM today No abdominal pain Concerned about HBV vaccine - Objective Vital Signs: Vital Signs Temperature 98.3 F 08/08/19 14:00 Pulse Rate 123 H 08/08/19 14:00 Respiratory Rate 18 08/08/19 14:00 Blood Pressure 127/88 08/08/19 14:00 O2 Sat by Pulse Oximetry (%) 100 08/08/19 09:00 Constitutional: Calm Eyes: No: Sclera Icterus Cardiovascular: Yes: Tachycardia Respiratory: Yes: CTA Bilaterally Gastrointestinal Inspection: No: Distention ...Auscultate: Yes: Normoactive Bowel Sounds ...Palpate: Yes: Soft. No: Hepatomegaly, Splenomegaly, Tenderness ...Percussion: No: Tympanitic Edema: No (No LE edema) Neurological: Yes: Alert Labs: CBC, BMP 08/08/19 08:19 08/08/19 08:19 INR, PTT INR 1.69 (0.83-1.09) H 08/07/19 08:27 Hepatic Panel Total Bilirubin 0.2 mg/dL (0.2-1) 08/08/19 08:19 AST 14 U/L (15-37) L 08/08/19 08:19 ALT 23 U/L (13-61) 08/08/19 08:19 Alkaline Phosphatase 80 U/L (45-117) 08/08/19 08:19 Albumin 1.5 g/dl (3.4-5.0) L 08/08/19 08:19 Problem List - Problems (1) Colitis Assessment/Plan: Clinically much improved when compared to beginning of her hospitalization Continuing IV steroids today, change to PO Prednisone 40mg daily tomorrow Encouraged HBV Vaccine: discussed possible need for escaltation of IBD rx in future with risk for reactivation of hepatitis B if contracted. Sebastian Pierce Low fiber diet Evaluation of chronic tachycardia per PMD Code(s): K52.9 - NONINFECTIVE GASTROENTERITIS AND COLITIS, UNSPECIFIED
[2019-08-09] MEDS: LORazepam 0.5 MG TABLET PO PRN (02:36)
[2019-08-09] MEDS: HEPARIN NA (PORCINE) 5,000 UNITS/ML 1ML VIAL SQ SCH ×2 (05:43→13:32)
[2019-08-09 09:14] LABS: BASO % 0.2 % (0-2.0); EOS % 0.1 % (0-4.5); HEMOGLOBIN 8.1 GM/dL (10.7-15.3); LYMPH % 8.5 % (8-40); MCHC 30.1 g/dl (32.0-36.0); MEAN CELL VOLUME 62.4 fl (80-96); MEAN PLT VOLUME 8.3 fl (7.5-11.1); MONO % 7.5 % (3.8-10.2); NEUT % 83.7 % (42.8-82.8); PLATELET COUNT 498 K/MM3 (134-434); RBC 4.33 M/mm3 (3.60-5.2); RDW 24.1 % (11.6-15.6); WHITE BLOOD COUNT 13.9 K/mm3 (4.0-10.0)
[2019-08-09 09:16] LABS: MCH 18.8 pg (25.7-33.7)
[2019-08-09 09:39] LABS: ALBUMIN 1.6 g/dl (3.4-5.0); BILIRUBIN,TOTAL 0.3 mg/dL (0.2-1); BLOOD UREA NITROGEN 8.6 mg/dL (7-18); CALCIUM 7.9 mg/dL (8.5-10.1); CREATININE 0.3 mg/dL (0.55-1.3); MAGNESIUM 2.1 mg/dL (1.8-2.4); POTASSIUM 3.7 mmol/L (3.5-5.1); TOT PROT 4.9 g/dl (6.4-8.2)
[2019-08-09 09:57] VITALS: BP 125/85; PULSE 117; TEMP 98.5
[2019-08-09] MEDS ORDERED: predniSONE 20 MG TABLET (UD) PO SCH (10:00)
[2019-08-09] MEDS ORDERED: FOLIC ACID 1 MG TABLET (FP) PO SCH (10:00)
[2019-08-09] MEDS ORDERED: HEPATITIS B VIRUS VACCINE-PF 20 MCG/1ML PRE-FILLED SYRINGE IM ONE (10:00)
[2019-08-09] MEDS: PANTOPRAZOLE 20 MG TABLET PO SCH (10:02)
[2019-08-09] MEDS: LACTOBACILLUS ACIDOPHILUS 1 TABLET PO SCH (10:02)
[2019-08-09] MEDS: MULTIVITAMINS (DAILY MVI) TABLET (FP) PO SCH (10:02)
[2019-08-09] MEDS: CALCIUM 250MG/VIT-D 125 UNITS 1 COMBO TABLET PO SCH (10:02)
[2019-08-09] MEDS: MESALAMINE 800 MG TABLET.DR PO SCH (10:03)
--- NOTE | 2019-08-09 11:03 | PN ---
Progress Note, Physician History of Present Illness: improving - Current Medication List Current Medications: Active Medications Calcium/Vitamin D (Oscal 250 Mg+D -) 2 tab PO DAILY [facility] Last Admin: 08/09/19 10:02 Dose: 2 tab Folic Acid (Folic Acid -) 1 mg PO DAILY [facility] Last Admin: 08/09/19 10:02 Dose: 1 mg Heparin Sodium (Porcine) (Heparin -) 5,000 unit SQ TID [facility] Last Admin: 08/09/19 05:43 Dose: Not Given Sodium Chloride (Normal Saline -) 1,000 mls @ 75 mls/hr IV ASDIR [facility] Last Admin: 08/08/19 22:25 Dose: 75 mls/hr Lactobacillus Acidophilus (Bacid -) 1 tab PO BID [facility] Last Admin: 08/09/19 10:02 Dose: 1 tab Lorazepam (Ativan -) 0.5 mg PO Q8H PRN PRN Reason: ANXIETY Last Admin: 08/09/19 02:36 Dose: 0.5 mg Mesalamine (Asacol Hd -) 2,400 mg PO DAILY [facility] Last Admin: 08/09/19 10:03 Dose: 2,400 mg Multivitamins/Minerals/Vitamin C (Tab-A-Vit -) 1 tab PO DAILY [facility] Last Admin: 08/09/19 10:02 Dose: 1 tab Pantoprazole Sodium (Protonix -) 20 mg PO DAILY [facility] Last Admin: 08/09/19 10:02 Dose: 20 mg Prednisone (Deltasone -) 40 mg PO DAILY [facility] Last Admin: 08/09/19 10:02 Dose: 40 mg - Objective Vital Signs: Vital Signs Temperature 98.5 F 08/09/19 09:00 Pulse Rate 117 H 08/09/19 09:00 Respiratory Rate 18 08/09/19 09:00 Blood Pressure 125/85 08/09/19 09:00 O2 Sat by Pulse Oximetry (%) 100 08/08/19 21:00 Constitutional: Yes: Calm, Mild Distress Cardiovascular: Yes: S1, S2 Respiratory: Yes: Regular, CTA Bilaterally Gastrointestinal: Yes: Normal Bowel Sounds, Soft Musculoskeletal: Yes: WNL Extremities: Yes: WNL Neurological: Yes: Alert, Oriented Psychiatric: Yes: Alert, Oriented Labs: CBC, BMP 08/09/19 08:23 08/09/19 08:23 INR, PTT INR 1.69 (0.83-1.09) H 08/07/19 08:27 Assessment/Plan Problem List - Problems (1) Colitis Code(s): K52.9 - NONINFECTIVE GASTROENTERITIS AND COLITIS, UNSPECIFIED (2) Abdominal pain Code(s): R10.9 - UNSPECIFIED ABDOMINAL PAIN (3) C. difficile colitis Code(s): A04.72 - ENTEROCOLITIS D/T CLOSTRIDIUM DIFFICILE, NOT SPCF RECUR (4) Leukocytosis Code(s): D72.829 - ELEVATED WHITE BLOOD CELL COUNT, UNSPECIFIED (5) Fibroids Code(s): D21.9 - BENIGN NEOPLASM OF CONNECTIVE AND OTHER SOFT TISSUE, UNSP (6) Anemia Code(s): D64.9 - ANEMIA, UNSPECIFIED (7) Acute blood loss anemia Code(s): D62 - ACUTE POSTHEMORRHAGIC ANEMIA (8) Tachycardia Code(s): R00.0 - TACHYCARDIA, UNSPECIFIED all the reports noted patient has multiple possibilities including ulcerative colitis,ischemic/ infectious plan await for stool studies continue to moitor rest as pert he team steroids
[2019-08-09 13:45] LABS: ANISOCYTOSIS 2+; OVALOCYTE 1+; TARGET CELLS FEW; TEAR DROP CELLS FEW
[2019-08-09 13:46] LABS: PLATELET ESTIMATE ADEQUATE; TOXIC GRANULATION 1+
--- NOTE | 2019-08-09 18:45 | DS ---
Physical Exam: 49 F h/o anxiety, fibroids and anemia. She presents to the ED with intermittently bloody chronic diarrhea for approximately 1 year. Seen in ED on for abdominal pain with abdomen/ct pelvis revealing colitis. She was discharged home with Flagyl and Amoxicilin that she self dc'd. Reports a weight loss of 10lbs in the last week despite eating. Finished course of abx, was seen by GI service who recommended PO prednisone, patient was started on this with improvement of diarrhea/abdominal pain. Patient now tolerating PO, ambulating, endorses just 1 BM no blood, denies abdominal pain. She has a follow up appointment with outside assistant oceanographer, ready for discharge to continue PO Prednisone. Period Temp Pulse Resp BP Sys/Henning Pulse Ox Last 24 Hr 97.9 F-98.8 F 93-117 18-18 123-126/79-85 100-100 PHYSICAL EXAM GENERAL: The patient is awake, alert, and fully oriented, in no acute distress. HEAD: Normal with no signs of trauma. EYES: PERRL, extraocular movements intact, sclera anicteric, conjunctiva clear. ENT: Ears normal, nares patent, oropharynx clear without exudates, moist mucous membranes. NECK: Trachea midline, full range of motion, supple. LUNGS: Breath sounds equal, clear to auscultation bilaterally, no wheezes, no crackles, no accessory muscle use. HEART: sinus tachycardia, S1, S2+ ABDOMEN: grossly soft, NT, ND, BS+, no guarding EXTREMITIES: 2+ pulses, warm, well-perfused, no edema. NEUROLOGICAL: Cranial nerves II through XII grossly intact. Normal speech, gait not observed. PSYCH: Normal mood, normal affect. SKIN: Warm, dry, normal turgor, no rashes or lesions noted. LABS Laboratory Results - last 24 hr 08/09/19 08/09/19 08:23 08:23 WBC 13.9 H RBC 4.33 Hgb 8.1 L Hct 27.0 L MCV 62.4 L MCH 18.8 L MCHC 30.1 L RDW 24.1 H Plt Count 498 H MPV 8.3 Absolute Neuts (auto) 11.7 H Neutrophils % 83.7 H Neutrophils % (Manual) 36.0 L Band Neutrophils % 51.0 Lymphocytes % 8.5 Lymphocytes % (Manual) 4.0 L D Monocytes % 7.5 Monocytes % (Manual) 5 Eosinophils % 0.1 Eosinophils % (Manual) 0.0 Basophils % 0.2 Basophils % (Manual) 0.0 Myelocytes % (Man) 2 D Nucleated RBC % 1 H Hypochromia 2+ Toxic Granulation 1+ Platelet Estimate Adequate Poikilocytosis 2+ Anisocytosis 2+ Target Cells Few Tear Drop Cells Few Ovalocytes 1+ Acanthocytes (Spur) Few Fragmented RBCs Few Sodium 140 Potassium 3.7 Chloride 109 H Carbon Dioxide 25 Anion Gap 6 L BUN 8.6 Creatinine 0.3 L Est GFR (CKD-EPI)AfAm 158.03 Est GFR (CKD-EPI)NonAf 136.35 Random Glucose 98 Calcium 7.9 L Magnesium 2.1 Total Bilirubin 0.3 AST 24 ALT 25 Alkaline Phosphatase 80 Total Protein 4.9 L Albumin 1.6 L Home Medications Medication Instructions Recorded LORazepam [Lorazepam] 0.5 mg PO TID PRN 07/28/19 Bacillus Coagulans [Probiotic] 1 each PO DAILY #14 capsule. 07/29/19 Calcium 250Mg/Vit-D 125 Units 2 tab PO DAILY #60 tab 08/07/19 [Oscal 250 mg+D -] Lactobacillus Acidophilus [Bacid -] 1 tab PO BID tab 08/07/19 Mesalamine [Asacol HD -] 2,400 mg PO DAILY #30 tablet. 08/07/19 Multivitamins [Multivit ([facility] 1 tab PO DAILY tab 08/07/19 Formulary)] Pantoprazole Sodium [Protonix -] 20 mg PO DAILY #30 tablet.ec 08/07/19 Prednisone [Prednisone 50 MG 40 mg PO DAILY #7 tablet 08/09/19 TABLETS] HOSPITAL COURSE: 49 F h/o anxiety, fibroids and anemia. She presents to the ED with intermittently bloody chronic diarrhea for approximately 1 year. Seen in ED on for abdominal pain with abdomen/ct pelvis revealing colitis. She was discharged home with Flagyl and Amoxicilin that she self dc'd. Reports a weight loss of 10lbs in the last week despite eating. Finished course of abx, was seen by GI service who recommended PO prednisone, patient was started on this with improvement of diarrhea/abdominal pain. Patient now tolerating PO, ambulating, endorses just 1 BM no blood, denies abdominal pain. She has a follow up appointment with outside assistant oceanographer, ready for discharge to continue PO Prednisone. ulcerative colitis with flare up Cont. Po prednisone 40mg daily until she follows with her outside GI doctor this week Cont. UC meds with probiotics, Mealamine, PPI Prednisone use supplement Os-Cecilio for bone health Anxiety disorder continue psych meds follow with PMD, denies SI/HI Disposition: Discharge home with follow up with PCP and GI doctor in 1 week ( patient endorses she already has appointments with them). Advised patient if she feels worsening abdominal pain, diarrhea, blood in stool, SOB, CP, dizziness , LOC to go to ED immediately. Discharge medications: Prednisone 40mg daily Continue rest of home medications. Date of Admission:08/02/19 Date of Discharge: 08/09/19 Minutes to complete discharge: 35 Discharge Summary Problems reviewed: Yes Reason For Visit: COLITIS Condition: Good - Instructions Diet, Activity, Other Instructions: DISCHARGE YOUR VISIT You came to the hospital because you were having bloody diarrhea with abdominal pain. You were seen by a GI doctor and had a flexible sigmoidoscopy and were found to have proctocolitis. You were started on steroids and asacol. You were tested on hepatitis and you were negative for Hepatatis A/B/C. You never had the hepatitis B vaccine and have no immunity. You were given the vaccine on . It is a series of thee vaccines in order to build immunity to the virus. Schedule an appointment with Dr Resendiz for the second and third dose. The second dose should be and the third 01/06. MEDICATIONS Please continue to take your home medications as prescribed. There was some changes: New---- Asacol (mesalamine) 2400mg daily Protonix 40mg daily Mutivitamin Continue: ativan as needed Probiotics DIET Continue your home diet low fiber low residue diet ADDITIONAL CARE Please make an appointment to see your GI doctor, Dr Leon 1 week from today. ADDITIONAL INFORMATION Please call 911 or come directly to the emergency department if you experience unusual headache, vision change, shortness of breath, chest pain, numbness, tingling, loss of alertness/awareness, loss of function, unusual bleeding or any alarming symptoms. Thank you for allowing me to care for you. Mor Antonio, ACNP, DNP [facility] [place] [phone] Referrals: Shea Leon MD [Staff Physician] - 1 Week (call for appointment) Seferino Resendiz [Primary Care Provider] - Disposition: HOME - Home Medications Comprehensive Discharge Medication List: Ambulatory Orders LORazepam [Lorazepam] 0.5 mg PO TID PRN 07/28/19 Bacillus Coagulans [Probiotic] 1 each PO DAILY #14 capsule. 07/29/19 Calcium 250Mg/Vit-D 125 Units [Oscal 250 mg+D -] 2 tab PO DAILY #60 tab Lactobacillus Acidophilus [Bacid -] 1 tab PO BID tab 08/07/19 Mesalamine [Asacol HD -] 2,400 mg PO DAILY #30 tablet. 08/07/19 Multivitamins [Multivit ([facility] Formulary)] 1 tab PO DAILY tab 08/07/19 Pantoprazole Sodium [Protonix -] 20 mg PO DAILY #30 tablet.ec 08/07/19 Prednisone [Prednisone 50 MG TABLETS] 40 mg PO DAILY #7 tablet 08/09/19 This patient is new to me today: Yes Date on this admission: 08/09/19 Emergency Visit: Yes ED Registration Date: 08/02/19 Care time: The patient presented to the Emergency Department on the above date and was hospitalized for further evaluation of their emergent condition. Critical Care patient: No - Discharge Referral Referred to [facility] Med P.C.: No
== END 2019-08-09 14:45 | disposition home or self-care (01) | DRG 386 ==
LOC: JER 09:04 → JERBED 13:11 → J5S 19:24
PROVIDERS: ADMIT Internal Medicine
PROC: 0DBN8ZX Excision of Sigmoid Colon, Via Natural or Artificial Opening Endoscopic, Diagnostic (ICD-10-PCS; principal; 2019-08-05 11:00)
DX: K51.30 Ulcerative (chronic) rectosigmoiditis without complications (principal); D62 Acute posthemorrhagic anemia; D64.9 Anemia, unspecified; D25.9 Leiomyoma of uterus, unspecified; F41.9 Anxiety disorder, unspecified; R00.0 Tachycardia, unspecified; D72.829 Elevated white blood cell count, unspecified; N83.202 Unspecified ovarian cyst, left side
CPT/HCPCS: 36415; 76700-TC; 80048; 80053; 81003; 82272; 82550; 82728; 83540; 83550; 83605; 83735; 83993; 84132; 84443; 84703; 85025; 85610; 85730; 86140; 86480; 86704; 86706; 86707; 86708; 86709; 86803; 87040; 87177; 87209; 87324; 87340; 87449; 88305-TC; 93005; 93010; 93306-TC; 99285-25; J0131; J1644; J1756; J7030